=== PATIENT | female | born 1975 | race Hispanic/Latino ===

== ENCOUNTER 2017-05-19 15:33 | Emergency (ER) | payer OTHER, SELFPAY ==
[2017-05-19 16:08] LABS: Bilirubin Small (Negative); Blood, Urine Trace (Negative); Glucose, Urine (Dipstick) Negative (Negative); Ketone, Urine Negative (Negative); Nitrite Negative (Negative); Protein, Urine (Dipstick) Trace mg/dL (Neg-Trace); Urobilinogen 0.2 mg/dL (0.2-1.0)
[2017-05-19 16:15] LABS: Bacteria/HPF 2+ HPF (None Seen); RBC/HPF 0-3 HPF (0-3)
[2017-05-19 16:16] LABS: Hyaline Casts/LPF NONE SEEN LPF (0-3 Hyaline)
== END 2017-05-19 18:00 | disposition home or self-care (01) ==
LOC: ERS 15:33
DX: N30.91 Cystitis, unspecified with hematuria (principal)
CPT/HCPCS: 81003; 81015; 81025; 99284

== ENCOUNTER 2018-09-28 23:46 | Observation (INO) | payer MEDICAID, SELFPAY ==
[2018-09-29 00:16] LABS: Bilirubin Negative (Negative); Blood, Urine Negative (Negative); Clarity CLEAR (Clear); Glucose, Urine (Dipstick) Negative (Negative); Leukocyte Negative (Negative); Nitrite Negative (Negative); Protein, Urine (Dipstick) Negative (Neg-Trace); Specific Gravity, Urine 1.014 (1.002-1.036)
[2018-09-29 00:17] LABS: #Basophils 0.1 thou/uL (0.0-0.2); #Eosinphils 0.1 thou/uL (0.0-0.7); #Lymphocytes 3.7 thou/uL (1.20-3.40); #Monocytes 0.9 thou/uL (0.11-0.59); #Neutrophils 5.1 thou/uL (1.40-6.50); %Basophils 1.2 % (0.0-1.0); %Eosinophils 1.4 % (0.0-10.0); %Lymphocytes 36.8 % (21.0-51.0); %Monocytes 9.1 % (0.0-10.0); %Neutrophils 51.6 % (42.0-75.0); Hemoglobin 14.4 g/dL (12.0-16.0); Mean Corpuscular HGB CONC 33.9 g/dL (32.0-36.0); Mean Corpuscular Hemoglobin 30.4 pg (27.0-31.0); Mean Corpuscular Volume 89.6 fL (78.0-98.0); Mean Platelet Volume 7.4 fL (7.4-10.4); Platelet Count 298 thou/uL (130-400); RBC Distribution Width 11.9 % (11.5-14.5); Red Blood Cell (RBC) Count 4.73 mill/uL (4.20-5.40); White Blood Cell (WBC) Count 9.9 thou/uL (4.8-10.8)
[2018-09-29 00:23] LABS: BHCG - Serum Negative (NEGATIVE); Pregs Control Background? CLEAR/WHITE (CLR/WHITE); Pregs Control Bar Appear? YES (CONTROL BAR)
[2018-09-29 00:38] LABS: ALT (SGPT) 41 U/L (8-55); AST (SGOT) 26 U/L (5-34); Albumin 4.2 g/dL (3.5-5.0); Alkaline Phosphatase 104 U/L (40-150); Anion Gap 10 mmol/L (10-20); BUN (Urea Nitrogen) 12 mg/dL (7.0-18.7); Bilirubin, Total 0.6 mg/dL (0.2-1.2); Calc. Creatinine Clearance 0 mL/min (70-130); Calcium 9.4 mg/dL (7.8-10.44); Carbon Dioxide 27 mmol/L (22-29); Chloride 105 mmol/L (98-107); Estimated GFR-MDRD 88; Globulin 3.3 g/dL (2.4-3.5); Glucose 152 mg/dL (70-105); Lipase 41 U/L (8-78); Potassium 3.7 mmol/L (3.5-5.1); Protein, Total 7.5 g/dL (6.0-8.3); Sodium 138 mmol/L (136-145)
[2018-09-29] MEDS ORDERED: Morphine 4 MG/ML VIAL ONE ×2 (02:37→03:44)
[2018-09-29] MEDS ORDERED: Piperacillin/Tazobactam 3.375 GM VIAL ONE ×2 (03:44→10:17)
[2018-09-29] MEDS ORDERED: Ondansetron ODT 4 MG TAB SL PRN (06:15)
[2018-09-29] MEDS ORDERED: Ondansetron PF 4 MG/2 ML Vial IVP PRN ×2 (06:15→10:39)
[2018-09-29] MEDS ORDERED: Morphine 4 MG/ML VIAL SLOW IVP PRN (06:17)
--- NOTE | 2018-09-29 07:48 | CT ---
PRELIMINARY REPORT/[facility]/EMERGENCY AFTER HOURS PROCEDURE: EXAM: CT Abdomen and Pelvis With Contrast EXAM DATE/TIME: 09/29/2018 12:36 AM CLINICAL HISTORY: 43 years old, female; Pain; Abdominal pain; Periumbilical; Patient HX: 43f presents for the evaluatio n of abdominal pain. Patient reports diffuse abdominal pain x 1 week and reports it is worsening. Pat ient reports ruq pain, periumbilical pain that radiates to her flank tonight. Denies fever and chills . Denies nausea and vomiting. Denies dysuria. Denies hematuria TECHNIQUE: Imaging protocol: Axial computed tomography images of the abdomen and pelvis with intravenous contras t. Coronal reformatted images were created and reviewed. COMPARISON: No relevant prior studies available. FINDINGS: Lower thorax: No consolidations in the lung bases. ABDOMEN: Liver: No liver masses. Gallbladder and bile ducts: Cholelithiasis. Enhancing gallbladder mucosa. No ductal dilation. Pancreas: No pancreatic mass or ductal dilation. Spleen: No splenic masses. Adrenals: No adrenal nodules. Kidneys and ureters: Symmetric perfusion of the kidneys. No enhancing mass or hydronephrosis. Stomach and bowel: No evidence of obstruction or bowel wall thickening. Scattered colonic diverticula . Appendix: The appendix is not visualized, however there are no inflammatory changes in the right lowe r quadrant to suspect appendicitis. PELVIS: Bladder: Normal bladder. Reproductive: Unremarkable as visualized. ABDOMEN and PELVIS: Intraperitoneal space: No free fluid or free air. Bones/joints: No acute fracture. No dislocation. Soft tissues: Mild fat stranding and punctate foci of air in the right buttock consistent with inject ion site. Vasculature: Normal vasculature. Lymph nodes: No lymphadenopathy. IMPRESSION: Cholelithiasis and enhancing gallbladder wall. Findings could represent early cholecystitis. Thank you for allowing us to participate in the care of your patient. Dictated and Authenticated by: Rosibel Riggs MD 09/29/2018 2:01 AM Central Time ([place] & [place]) FINAL REPORT ABDOMEN CT WITH CONTRAST PELVIC CT WITH CONTRAST: Date: 09/29/18 COMPARISON: 01/14/16. HISTORY: Right upper quadrant pain. Periumbilical pain, radiating to the flank. Abdominal pain x1 week. FINDINGS: This report is in agreement with the preliminary report by Frankie. There is CT evidence of cholelithias is with gallbladder wall enhancement and a small amount of pericholecystic fluid. Correlate clinicall y for acute cholecystitis. Heterogeneous appearance of the uterus may represent changes secondary to uterine leiomyoma. Better i nterrogation with pelvic ultrasound would be beneficial. IMPRESSION: 1. Early cholecystitis. 2. Heterogeneous attenuation of the uterus likely due to uterine leiomyoma. Better interrogation wit h pelvic ultrasound is recommended. CODE T. POS: [facility]
--- NOTE | 2018-09-29 07:51 | ULT ---
PRELIMINARY REPORT/[facility]/EMERGENCY AFTER HOURS PROCEDURE: EXAM: US Abdomen Limited, Right Upper Quadrant EXAM DATE/TIME: 09/29/2018 2:35 AM CLINICAL HISTORY: 43 years old, female; Pain and signs and symptoms; Nausea and vomiting; Abdominal pain; Localized; Ri ght upper quadrant (ruq) TECHNIQUE: Imaging protocol: Real-time ultrasound of the abdomen with image documentation. Examination was focus ed on the right upper quadrant. COMPARISON: CT Abdomen Pelvis W Con 09/29/2018 12:36 AM FINDINGS: Liver: Increased echogenicity of the liver suggestive of fatty infiltration. The length of the liver is 16.7 cm. Gallbladder: Multiple gallstones. The gallbladder wall is thickened up to 0.68 cm. The sonographic Mu rphy's sign was positive. Common bile duct: No intrahepatic nor extrahepatic biliary dilation. The common bile duct measures 0. 4 cm. Pancreas: The visualized portions of the pancreas are normal. Right kidney: Normal appearance of the right kidney with normal cortical echogenicity and without hyd ronephrosis or mass. The right kidney measures 9.8 x 3.8 x 4 cm. IMPRESSION: Cholelithiasis with sonographic findings of acute cholecystitis. Thank you for allowing us to participate in the care of your patient. Dictated and Authenticated by: Rosibel Riggs MD 09/29/2018 3:16 AM Central Time ([place] & [place]) FINAL REPORT GALLBLADDER ULTRASOUND: Date: 09/29/18 HISTORY: Right upper quadrant pain. COMPARISON: None. TECHNIQUE: Utilizing multihertz transducer, sonographic imaging of the right upper quadrant is performed in the longitudinal and transverse plane. FINDINGS: This report is in agreement with the preliminary report by Frankie. Increased echogenicity of the liver likely due to hepatic steatosis. Sonographic evidence of cholelithiasis with gallbladder wall thickening. Barrel Rifler Broach does report a po sitive Rogers's sign. IMPRESSION: Cholelithiasis with sonographic findings for acute cholecystitis. POS: [facility]
--- NOTE | 2018-09-29 07:52 | RAD ---
FChest AP view INDICATION: Preoperative evaluation with abdominal pain COMPARISON: None FINDINGS: The lungs are clear. The heart size is normal. No pleural effusion or pneumothorax is evide nt. No acute osseous abnormality is noted. IMPRESSION: No acute cardiopulmonary abnormality.
[2018-09-29] MEDS ORDERED: Fentanyl 100 MCG/2 ML VIAL ONE ×2 (08:54→11:11)
[2018-09-29] MEDS ORDERED: Bupivacaine/Epinephrine 0.25% 30 ML VIAL ONE (09:20)
[2018-09-29] MEDS ORDERED: Midazolam HCl 2 mg/2 ml Vial ONE (09:27)
[2018-09-29] MEDS ORDERED: Scopolamine 1.5 mg/72 hour Patch ONE (09:27)
[2018-09-29] MEDS: Piperacillin/Tazobactam 3.375 GM in Sodium Chloride 0.9% 100 ML IVPB SCH ×2 (10:10→14:54)
[2018-09-29] MEDS: Sodium Chloride 0.9% 1,000 ML IV SCH ×4 (10:10→23:05)
[2018-09-29] MEDS ORDERED: Promethazine HCl 25 MG/ML VIAL IM PRN ×2 (10:39→10:44)
[2018-09-29] MEDS ORDERED: Calcium Carbonate 500 MG ChewTAB PO PRN (10:39)
[2018-09-29] MEDS ORDERED: Dextrose 50% Abboject 50 ML SYRINGE SLOW IVP PRN (10:39)
[2018-09-29] MEDS ORDERED: Mag-Al 1200 mg/1200 mg/30 ML UDCUP PO PRN (10:39)
[2018-09-29] MEDS ORDERED: HYDROcodone/Acetaminophen 10/325 mg Tablet PO PRN ×2 (10:39)
[2018-09-29] MEDS ORDERED: Dextrose 5% in Water 1,000 ML IV PRN (10:39)
[2018-09-29] MEDS ORDERED: hydrALAZINE 20 MG/ML VIAL SLOW IVP PRN (10:39)
[2018-09-29] MEDS ORDERED: Promethazine HCl 25 MG/ML VIAL SLOW IVP PRN (10:44)
[2018-09-29] MEDS ORDERED: Ondansetron HCl/PF 4 MG/2 ML Vial IVP PRN (10:44)
[2018-09-29] MEDS ORDERED: Meperidine HCl/PF 25 MG/ML VIAL SLOW IVP PRN (10:44)
[2018-09-29] MEDS: Enoxaparin Sodium 40 MG/0.4 ML SYRINGE SC SCH (12:30)
[2018-09-29] MEDS: Famotidine 20 MG TAB PO SCH ×2 (12:42→20:02)
[2018-09-29] MEDS: Famotidine/PF 20 mg/2ml Vial SLOW IVP SCH ×2 (12:42→20:04)
[2018-09-29] MEDS: Ketorolac Tromethamine 30 MG/ML VIAL IVP SCH ×4 (12:53→23:04)
[2018-09-29] MEDS ORDERED: Ondansetron PF 4 MG/2 ML Vial ONE (14:01)
[2018-09-29] MEDS ORDERED: Lidocaine 1% PF 5 ML VIAL ONE (14:01)
[2018-09-29] MEDS ORDERED: Metoclopramide HCl 10 MG/2 ML VIAL ONE (14:01)
[2018-09-29] MEDS ORDERED: Rocuronium Bromide 10 MG/ML (10ML VIAL) ONE (14:01)
[2018-09-29] MEDS ORDERED: PROPOFOL 200 MG/20 ML VIAL ONE (14:01)
[2018-09-29] MEDS ORDERED: Dexamethasone 20 MG/5 ML VIAL ONE (14:01)
--- NOTE | 2018-09-29 14:19 | HP ---
CHIEF COMPLAINT: Epigastric abdominal pain. HISTORY OF PRESENT ILLNESS: The patient is a 43-year-old female with a 2-week history of right upper quadrant epigastric pain radiating to back. No fever or chills. PAST MEDICAL HISTORY: Otherwise, unremarkable. PAST SURGICAL HISTORY: She had a skin lesion removed. She also had an appendectomy. MEDICATIONS: No medications. ALLERGIES: NO KNOWN DRUG ALLERGIES. SOCIAL HISTORY: She is . No tobacco. No alcohol. She speaks [place]. She is a homemaker. FAMILY HISTORY: Noncontributory. PHYSICAL EXAMINATION: VITAL SIGNS: Pulse 76, blood pressure 127/79, temperature 98.6. GENERAL: Well-developed, well-nourished female, in no apparent distress. HEENT: No jaundice. LUNGS: Clear. HEART: Regular rate and rhythm. ABDOMEN: Soft. Very tender in the right upper quadrant and periumbilical area. She has positive Rogers sign. EXTREMITIES: Unremarkable. LABORATORY DATA: White count 9.9, H and H of 14 and 42, platelet count 298. Electrolytes are fine. Elevated glucose at 152. Urinalysis, clear. Ultrasound shows thickened gallbladder wall with gallstones. CT also confirmed that. ASSESSMENT: Acute cholecystitis. PLAN: Laparoscopic cholecystectomy. CONSENT: I have discussed planned procedure as well as risk of bleeding, infection, injury to bile duct and bowel, need to open. She understands and gives informed consent. Job ID: [id number]
[2018-09-29] MEDS ORDERED: ISOVUE-370 76%-LOCM 1 ML ONE (14:50)
[2018-09-29] MEDS: Morphine 4 MG/ML VIAL SLOW IVP PRN (14:52)
[2018-09-29] MEDS ORDERED: cefOXitin 2 GM in Sodium Chloride 0.9% 100 ML IVPB SCH (15:30)
--- NOTE | 2018-09-29 17:04 | OP ---
DATE OF PROCEDURE: 09/29/2018 PREOPERATIVE DIAGNOSIS: Acute cholecystitis. PROCEDURE PERFORMED: Laparoscopic cholecystectomy. INDICATIONS: This is a 43-year-old female, who has been having episodic right upper quadrant pain, radiating to back, associated with nausea. Ultrasound showed cholelithiasis. FINDINGS: A thickened gallbladder wall, large stone, small duct. DESCRIPTION OF PROCEDURE: After informed consent was obtained, the patient was taken to the operating room and given general endotracheal anesthesia, placed in supine position. Abdomen was prepped and draped in usual fashion. Local anesthesia infiltrated subcutaneously and deep. A subumbilical incision was performed. Subcu divided sharply. The fascia grasped and 2 stay sutures of 0 Vicryl placed in each side of midline. Midline incised. Digital palpation revealed no local adhesions. A blunt 12-mm trocar inserted. Pneumoperitoneum was created to a pressure of 15 mmHg. A 0-degree laparoscope was inserted under direct vision. Three 5-mm ports were placed subcostally. The gallbladder was grasped and advanced superiorly. Peritoneum lysed distally to reveal the cystic duct artery in critical view. These structures were triply ligated with hemoclips and divided. The gallbladder removed from its fossa utilizing electrocautery, removed from the abdomen through the umbilical port. Hemostasis assured. Now, the gallbladder had very large stones and so I had opened the fascia further as well as the skin to get it out. The abdomen was re-insufflated. Liver bed was cauterized to control any bleeding. The abdomen was irrigated. Irrigation fluid removed. The trocars and retractors were removed. The fascia was closed with interrupted 2-0 Vicryl suture. The skin was closed with interrupted 4-0 Rapide. Dermabond applied. The patient tolerated the procedure well, transferred to Recovery in good condition. Sponge and needle count verified correct x2. Job ID: [id number]
[2018-09-29 17:09] VITALS: BMI 23.8
[2018-09-29] MEDS: cefOXitin Sodium/Dextrose,Iso 2 GM in Premix Bag 1 BAG IVPB SCH ×2 (18:06→23:05)
[2018-09-29] MEDS: cefOXitin 2 GM in Premix Bag 1 BAG IVPB SCH ×2 (18:11→23:08)
[2018-09-30] MEDS: Morphine 4 MG/ML VIAL SLOW IVP PRN (01:15)
[2018-09-30 05:08] LABS: #Lymphocytes 2.2 thou/uL (1.20-3.40); %Basophils 0.1 % (0.0-1.0); %Eosinophils 0.1 % (0.0-10.0); %Lymphocytes 13.3 % (21.0-51.0); %Monocytes 6.4 % (0.0-10.0); Hemoglobin 12.8 g/dL (12.0-16.0); Mean Corpuscular HGB CONC 33.3 g/dL (32.0-36.0); Mean Corpuscular Hemoglobin 30.8 pg (27.0-31.0); Mean Corpuscular Volume 92.3 fL (78.0-98.0); Mean Platelet Volume 7.5 fL (7.4-10.4); Platelet Count 282 thou/uL (130-400); RBC Distribution Width 12.1 % (11.5-14.5); Red Blood Cell (RBC) Count 4.16 mill/uL (4.20-5.40); White Blood Cell (WBC) Count 16.2 thou/uL (4.8-10.8)
[2018-09-30 05:28] LABS: ALT (SGPT) 427 U/L (8-55); AST (SGOT) 243 U/L (5-34); Albumin 3.5 g/dL (3.5-5.0); Alkaline Phosphatase 108 U/L (40-150); Anion Gap 8 mmol/L (10-20); BUN (Urea Nitrogen) 8 mg/dL (7.0-18.7); Bilirubin, Total 0.8 mg/dL (0.2-1.2); Calc. Creatinine Clearance 115 mL/min (70-130); Calcium 8.6 mg/dL (7.8-10.44); Carbon Dioxide 22 mmol/L (22-29); Chloride 112 mmol/L (98-107); Estimated GFR-MDRD Greater than 90; Globulin 2.8 g/dL (2.4-3.5); Glucose 133 mg/dL (70-105); Lipase 23 U/L (8-78); Potassium 4.1 mmol/L (3.5-5.1); Protein, Total 6.3 g/dL (6.0-8.3); Sodium 138 mmol/L (136-145)
[2018-09-30] MEDS: Ketorolac Tromethamine 30 MG/ML VIAL IVP SCH ×2 (06:15→11:55)
[2018-09-30] MEDS ORDERED: cefOXitin Sodium/Dextrose,Iso 2 GM in Premix Bag 1 BAG IVPB SCH (08:00)
[2018-09-30] MEDS: Sodium Chloride 0.9% 1,000 ML IV SCH (08:06)
[2018-09-30] MEDS ORDERED: traMADol HCl 50 MG TAB PO PRN (09:01)
[2018-09-30] MEDS ORDERED: Enoxaparin Sodium 40 MG/0.4 ML SYRINGE SC SCH (09:30)
[2018-09-30] MEDS: Famotidine/PF 20 mg/2ml Vial SLOW IVP SCH (09:34)
[2018-09-30] MEDS: Famotidine 20 MG TAB PO SCH (09:34)
[2018-09-30] MEDS: Enoxaparin Sodium 40 MG/0.4 ML SYRINGE SC SCH (09:36)
--- NOTE | 2018-09-30 09:56 | PRG ---
DATE OF SERVICE: 09/30/2018 SUBJECTIVE: The patient reports that she does not feel very well this morning. She says she is having lower abdominal pain. No nausea. No vomiting. She is eating well. OBJECTIVE: VITAL SIGNS: Her temperature is 98, pulse 69, and blood pressure 94/58. GENERAL: She looks okay. She is awake and alert. ABDOMEN: Soft and nondistended. Very minimal erythema around her umbilicus. The other incisions look good. LABORATORY DATA: Her white count is elevated at 16.2, hemoglobin and hematocrit of 12 and 38, platelet count 282. Her AST is 243, ALT of 427, T bilirubin of 0.8, and glucose is 133. ASSESSMENT: Postoperative pain. PLAN: We will get her ambulated, try and get her pain under control. May be discharged later. Job ID: [id number]
[2018-09-30 16:15] VITALS: BP 115/72; TEMP 98.1
--- NOTE | 2018-10-01 02:31 | DIS ---
DATE OF ADMISSION: 09/29/2018 DATE OF DISCHARGE: 09/30/2018 DISCHARGE DIAGNOSIS: Acute cholecystitis. PROCEDURE DURING ADMISSION: Laparoscopic cholecystectomy. HOSPITAL COURSE: The patient was admitted, given IV antibiotics, taken to the operating room where she underwent a laparoscopic cholecystectomy. She was found to have an inflamed gallbladder. Postoperatively, she did well, moderate pain. She is tolerating a regular diet. She is afebrile. She is discharged home on hydrocodone, Zofran, and doxycycline. She will follow up with me in 2 weeks. Job ID: [id number]
== END 2018-09-30 16:20 | disposition home or self-care (01) ==
LOC: ERS 23:46 → SJJU 09-29 06:16
PROVIDERS: ADMIT Surgery; ATTEND Surgery
PROC: 0FT44ZZ Resection of Gallbladder, Percutaneous Endoscopic Approach (ICD-10-PCS; principal; 2018-09-29)
DX: K80.12 Calculus of gallbladder with acute and chronic cholecystitis without obstruction (principal); G89.18 Other acute postprocedural pain
CPT/HCPCS: 36415; 71045; 74177; 76705; 80053; 81003; 83690; 84703; 85025; 86850; 86900; 86901; 87086; 88304; 93005; 96361; 96365; 96367; 96372; 96375; 96376; G0378; J0500; J0694; J1100; J1650; J1885; J2001; J2250; J2270; J2405; J2543; J2704; J2765; J3010; J7050; Q9966

== ENCOUNTER 2018-10-10 07:56 | Emergency (ER) | payer MEDICAID, SELFPAY ==
[2018-10-10] MEDS ORDERED: Morphine 4 MG/ML VIAL ONE (09:03)
[2018-10-10 09:08] LABS: #Basophils 0.1 thou/uL (0.0-0.2); #Eosinphils 0.2 thou/uL (0.0-0.7); #Lymphocytes 3.2 thou/uL (1.20-3.40); #Monocytes 0.8 thou/uL (0.11-0.59); %Eosinophils 2.2 % (0.0-10.0); %Lymphocytes 34.6 % (21.0-51.0); %Monocytes 8.5 % (0.0-10.0); %Neutrophils 53.7 % (42.0-75.0); Hemoglobin 13.6 g/dL (12.0-16.0); Mean Corpuscular HGB CONC 31.9 g/dL (32.0-36.0); Mean Corpuscular Volume 90.7 fL (78.0-98.0); Mean Platelet Volume 7.3 fL (7.4-10.4); Platelet Count 313 thou/uL (130-400); RBC Distribution Width 11.8 % (11.5-14.5); Red Blood Cell (RBC) Count 4.69 mill/uL (4.20-5.40); White Blood Cell (WBC) Count 9.2 thou/uL (4.8-10.8)
[2018-10-10 09:39] LABS: ALT (SGPT) 42 U/L (8-55); AST (SGOT) 22 U/L (5-34); Albumin 3.8 g/dL (3.5-5.0); Alkaline Phosphatase 118 U/L (40-150); Anion Gap 11 mmol/L (10-20); BUN (Urea Nitrogen) 14 mg/dL (7.0-18.7); Bilirubin, Total 0.3 mg/dL (0.2-1.2); Calc. Creatinine Clearance 0 mL/min (70-130); Calcium 9.2 mg/dL (7.8-10.44); Carbon Dioxide 26 mmol/L (22-29); Chloride 107 mmol/L (98-107); Estimated GFR-MDRD 89; Globulin 3.2 g/dL (2.4-3.5); Glucose 113 mg/dL (70-105); Lipase 30 U/L (8-78); Potassium 4.3 mmol/L (3.5-5.1); Sodium 140 mmol/L (136-145)
--- NOTE | 2018-10-10 10:03 | ULT ---
RIGHT UPPER QUADRANT ULTRASOUND: HISTORY: Eleven days post cholecystectomy with right upper quadrant pain. FINDINGS: 09/29/2018 FINDINGS: The liver demonstrates increased echogenicity, consistent with fatty infiltration. No focal mass or intrahepatic ductal dilatation is seen. The patient is post cholecystectomy. The common duct measur es 5 mm in diameter. The pancreas is not well visualized due to overlying bowel gas. The right kidn ey is normal. There is fluid in the gallbladder fossa. IMPRESSION: Status post cholecystectomy with fluid in the gallbladder fossa, which may either be due to postopera tive fluid or bile leak. Infection cannot be excluded. Further evaluation with HIDA scan would be h elpful to look for bile leak. POS: [facility]
[2018-10-10] MEDS ORDERED: Acetaminophen 325 MG TAB ONE (10:54)
== END 2018-10-10 12:08 | disposition home or self-care (01) ==
LOC: ERS 07:56
DX: R10.11 Right upper quadrant pain (principal)
CPT/HCPCS: 36415; 76705; 80053; 83690; 85025; 96374; J2270

== ENCOUNTER 2019-02-25 19:14 | Emergency (ER) | payer OTHER, SELFPAY ==
[~2019-02-25 19:14] MED LIST: ISOVUE-370 76%-LOCM 1 ML ONE
[2019-02-25 20:13] LABS: #Basophils 0.1 thou/uL (0.0-0.2); #Eosinphils 0.1 thou/uL (0.0-0.7); #Lymphocytes 3.1 thou/uL (1.20-3.40); #Monocytes 0.8 thou/uL (0.11-0.59); #Neutrophils 4.8 thou/uL (1.40-6.50); %Basophils 0.7 % (0.0-1.0); %Eosinophils 1.3 % (0.0-10.0); %Lymphocytes 34.6 % (21.0-51.0); %Monocytes 9.2 % (0.0-10.0); %Neutrophils 54.2 % (42.0-75.0); Hemoglobin 14.5 g/dL (12.0-16.0); Mean Corpuscular HGB CONC 34.5 g/dL (32.0-36.0); Mean Corpuscular Hemoglobin 31.7 pg (27.0-31.0); Mean Corpuscular Volume 91.8 fL (78.0-98.0); Mean Platelet Volume 7.6 fL (7.4-10.4); Platelet Count 281 thou/uL (130-400); RBC Distribution Width 11.7 % (11.5-14.5); Red Blood Cell (RBC) Count 4.57 mill/uL (4.20-5.40); White Blood Cell (WBC) Count 8.9 thou/uL (4.8-10.8)
[2019-02-25 20:17] LABS: BHCG - Serum Negative (NEGATIVE); Pregs Control Background? CLEAR/WHITE (CLR/WHITE); Pregs Control Bar Appear? YES (CONTROL BAR)
[2019-02-25 20:33] LABS: ALT (SGPT) 145 U/L (8-55); AST (SGOT) 80 U/L (5-34); Albumin 4.3 g/dL (3.5-5.0); Alkaline Phosphatase 139 U/L (40-150); Anion Gap 12 mmol/L (10-20); BUN (Urea Nitrogen) 10 mg/dL (7.0-18.7); Bilirubin, Total 0.4 mg/dL (0.2-1.2); Calc. Creatinine Clearance 0 mL/min (70-130); Carbon Dioxide 20 mmol/L (22-29); Chloride 107 mmol/L (98-107); Estimated GFR-MDRD Greater than 90; Globulin 3.3 g/dL (2.4-3.5); Glucose 105 mg/dL (70-105); Lipase 39 U/L (8-78); Potassium 3.7 mmol/L (3.5-5.1); Protein, Total 7.6 g/dL (6.0-8.3); Sodium 135 mmol/L (136-145)
[2019-02-25 21:04] LABS: Bilirubin Negative (Negative); Blood, Urine Negative (Negative); Clarity Clear (Clear); Glucose, Urine (Dipstick) Normal (Negative); Leukocyte Negative Leu/uL (Negative); Nitrite Negative (Negative); Protein, Urine (Dipstick) Negative (Neg-Trace); Urobilinogen Normal mg/dL (Less than 2)
[2019-02-25] MEDS ORDERED: Ondansetron ODT 4 MG TAB ONE (21:25)
[2019-02-25] MEDS ORDERED: Ketorolac Tromethamine 60 MG/2 ML VIAL ONE (21:25)
--- NOTE | 2019-02-25 22:22 | CT ---
CT ABDOMEN AND PELVIS WITH IV CONTRAST: 02/25/19 HISTORY: Abdominal pain. COMPARISON: 09/29/18. FINDINGS: The lung bases are clear. Interval changes of cholecystectomy have occurred since the last study. Roxie nges of fatty infiltration of the liver are again seen. The spleen, pancreas, adrenal glands and kidn eys are normal. No free air, free fluid, or lymphadenopathy seen in the abdomen or pelvis. There is colonic diverticulosis without diverticulitis. There is abnormal dilatation of the terminal ileum which is fluid filled. A fibroid uterus is present. The aortic caliber is normal. No acute osseous abnormalities are seen. IMPRESSION: 1. Dilated fluid filled terminal ileum. Further evaluation with colonoscopy and small bowel seri es are recommended. 2. Colonic diverticulosis. 3. Fatty liver. 4. Fibroid uterus. POS: [facility]
[2019-02-25] MEDS ORDERED: Morphine 4 MG/ML VIAL ONE (22:42)
[2019-02-25] MEDS ORDERED: Ondansetron PF 4 MG/2 ML Vial ONE (22:42)
== END 2019-02-26 00:35 | disposition home or self-care (01) ==
LOC: ERS 19:14
DX: R10.30 Lower abdominal pain, unspecified (principal); R11.2 Nausea with vomiting, unspecified; R94.5 Abnormal results of liver function studies
CPT/HCPCS: 36415; 74177; 80053; 81003; 83690; 84703; 85025; 96372; 96374; 96375; J0500; J1885; J2270; J2405; Q0162; Q9966

== ENCOUNTER 2019-03-03 19:32 | Inpatient (IN) | payer SELFPAY ==
[2019-03-03] MEDS ORDERED: Ondansetron PF 4 MG/2 ML Vial ONE ×2 (20:03→20:34)
[2019-03-03] MEDS ORDERED: Morphine 4 MG/ML VIAL ONE (20:03)
[2019-03-03] MEDS ORDERED: Ketorolac Tromethamine 30 MG/ML VIAL ONE (20:03)
--- NOTE | 2019-03-03 20:25 | RAD ---
EXAM: Single view of the chest HISTORY: Flulike symptoms and cough COMPARISON: 09/29/2018 FINDINGS: Single view of the chest shows a normal sized cardiomediastinal silhouette. There is no jocelyn dence of consolidation, mass, or pleural effusion. The bones are unremarkable. IMPRESSION: No evidence of acute cardiopulmonary disease
[2019-03-03 20:32] LABS: Mean Corpuscular Volume 90.9 fL (78.0-98.0)
[2019-03-03 20:34] LABS: ALT (SGPT) 170 U/L (8-55); AST (SGOT) 106 U/L (5-34); Albumin 4.7 g/dL (3.5-5.0); Alkaline Phosphatase 172 U/L (40-150); Anion Gap 15 mmol/L (10-20); BUN (Urea Nitrogen) 8 mg/dL (7.0-18.7); Bilirubin, Total 0.7 mg/dL (0.2-1.2); Calc. Creatinine Clearance 0 mL/min (70-130); Calcium 9.6 mg/dL (7.8-10.44); Carbon Dioxide 20 mmol/L (22-29); Chloride 103 mmol/L (98-107); Estimated GFR-MDRD 79; Globulin 3.6 g/dL (2.4-3.5); Glucose 179 mg/dL (70-105); Potassium 3.8 mmol/L (3.5-5.1); Protein, Total 8.3 g/dL (6.0-8.3); Sodium 134 mmol/L (136-145)
[2019-03-03 20:42] LABS: Band 14 % (5-11); Hemoglobin 15.4 g/dL (12.0-16.0); Lymphocytes 7 % (21-51); MDiff Complete? YES; Mean Corpuscular Hemoglobin 31.8 pg (27.0-31.0); Mean Platelet Volume 7.6 fL (7.4-10.4); Monocytes 2 % (0-10); Neutrophil 77 % (42-75); Platelet Count 290 thou/uL (130-400); Platelet Morphology Comment Appears Adequate; RBC Distribution Width 11.8 % (11.5-14.5); Red Blood Cell (RBC) Count 4.85 mill/uL (4.20-5.40); White Blood Cell (WBC) Count 20.6 thou/uL (4.8-10.8)
[2019-03-03 20:51] LABS: Bilirubin Negative (Negative); Blood, Urine 2+ (Negative); Clarity Clear (Clear); Glucose, Urine (Dipstick) 200 mg/dL (Negative); Leukocyte Negative Leu/uL (Negative); Mucous/LPF Rare LPF (<2+); Nitrite Negative (Negative); Protein, Urine (Dipstick) 30 mg/dL (Neg-Trace); Urobilinogen 3 mg/dL (Less than 2)
[2019-03-03 20:52] LABS: Pregnancy Test - Urine (BHCG) Negative (Negative); Pregu Control Background? CLEAR/WHITE (CLR/WHITE); Pregu Control Bar Appear? YES (CONTROL BAR); Specific Gravity 1.019 (1.002-1.036)
[2019-03-03 20:57] LABS: Bacteria/HPF 1+ HPF (None Seen)
[2019-03-03] MEDS ORDERED: Piperacillin/Tazobactam 4.5 GM VIAL ONE (21:18)
--- NOTE | 2019-03-03 21:23 | CT ---
CT Abdomen Pelvis W Con: 03/03/2019 12:00 AM CLINICAL INFORMATION: Body aches and diffuse abdominal pain with fever COMPARISON: 02/25/2019 TECHNIQUE: Multiple contiguous axial images were obtained and a CT of the abdomen and pelvis with IV contrast. C oronal reformats were performed. FINDINGS: Lower Chest: within normal limits. Abdomen: Liver: Diffuse fatty infiltration Bile Ducts: Normal caliber. Gallbladder: Surgically absent Pancreas: within normal limits. Spleen: within normal limits. Adrenals: within normal limits. Kidneys: within normal limits. Pelvis: Reproductive Organs: No pelvic masses. Ureters: within normal limits. Bladder: within normal limits. Peritoneum: No ascites or free air, no fluid collection. Bowel: Normal caliber. Scattered diverticula in the colon. Mesentery and Retroperitoneum: No enlarged mesenteric or retroperitoneal lymph nodes. Vessels: Normal. Abdominal Wall: within normal limits. Bones: Within normal limits IMPRESSION: 1. No evidence of acute intraabdominal or pelvic abnormality. 2. Diverticulosis 3. Fatty liver
--- NOTE | 2019-03-03 22:30 | ULT ---
US Gallbladder RUQ: 03/03/2019 9:21 PM CLINICAL HISTORY: Retained stone status post cholecystectomy. Abdominal pain and fever. Elevated LFTs . STUDY: Limited right upper quadrant ultrasound of abdomen. COMPARISON: 10/10/2018; CT abdomen/pelvis 03/03/2019 FINDINGS: Liver: Size: Normal. Echogenicity: Hyperechoic consistent with hepatic steatosis. Contour: Smooth. Mass: None. Bile ducts: No intrahepatic or extrahepatic biliary dilatation. Common bile duct measures 5 mm. Gallbladder: Absent Pancreas: Not visualized Right kidney: No pelvicalyceal dilatation. Right kidney measuring 10.7 cm in length. IMPRESSION: Fatty liver
[2019-03-04 00:28] LABS: Lactic Acid 2.8 mmol/L (0.5-2.2)
[2019-03-04] MEDS ORDERED: Morphine 2 MG/ML SYRINGE SLOW IVP PRN (01:06)
[2019-03-04] MEDS ORDERED: Ondansetron PF 4 MG/2 ML Vial IVP PRN (01:07)
[2019-03-04] MEDS ORDERED: Ondansetron ODT 4 MG TAB SL PRN (01:07)
[2019-03-04 01:13] LABS: HBCM Index 0.07 S/CO (0-0.79); HBSAg Index 0.26 S/CO (0-0.99); Hep A IgM AB Non-Reactive (NonReactive); Hep A IgM S/CO 0.22 S/CO (0-0.79); Hep B Surf Ag Non-Reactive S/CO (NonReactive); Hep C IgG Ab Non-Reactive (NonReactive); Hep C Index 0.13 S/CO (0-0.79); Hepatitis B Core IgM Abs Non-Reactive (NonReactive)
[2019-03-04 01:56] VITALS: BMI 32.7
[2019-03-04] MEDS: Acetaminophen 325 MG TAB PO PRN ×2 (02:32→15:50)
[2019-03-04] MEDS: Sodium Chloride 0.9% 1,000 ML IV SCH ×4 (02:42→21:07)
[2019-03-04] MEDS ORDERED: Piperacillin/Tazobactam 4.5 GM in Sodium Chloride 0.9% 100 ML IVPB SCH ×2 (03:00→06:00)
[2019-03-04] MEDS: Piperacillin/Tazobactam 4.5 GM in Sodium Chloride 0.9% 100 ML IVPB SCH ×2 (09:22→16:39)
[2019-03-04] MEDS: Enoxaparin Sodium 40 MG/0.4 ML SYRINGE SC SCH (09:23)
[2019-03-04] MEDS ORDERED: Ondansetron PF 4 MG/2 ML Vial ONE (10:27)
[2019-03-04] MEDS ORDERED: Lidocaine 1% PF 5 ML VIAL ONE (10:27)
[2019-03-04] MEDS ORDERED: Dexamethasone 20 MG/5 ML VIAL ONE (10:27)
[2019-03-04] MEDS ORDERED: PROPOFOL 200 MG/20 ML VIAL ONE (10:27)
[2019-03-04] MEDS ORDERED: Rocuronium Bromide 10 MG/ML (10ML VIAL) ONE (10:27)
[2019-03-04] MEDS ORDERED: Glycopyrrolate 0.2 MG/ML 5 ML SYRINGE ONE (10:27)
[2019-03-04] MEDS ORDERED: ISOVUE-370 76%-LOCM 1 ML ONE (10:37)
--- NOTE | 2019-03-04 12:23 | CON ---
DATE OF CONSULTATION: 03/04/2019 REQUESTING PHYSICIAN: Dr. Bonilla. REASON FOR CONSULTATION: Possible cholangitis. HISTORY OF PRESENT ILLNESS: Gaby Villa is a very pleasant 44-year-old woman, who speaks Lao only. She is seen today with the assistance of the telemedicine interpreting service. She has a history of appendectomy over a year ago. In September, she was hospitalized here with cholecystitis and underwent cholecystectomy with Dr. Campuzano. Pathology demonstrated cholelithiasis and chronic cholecystitis. Notably at that time, transaminases were elevated, though bilirubin was normal. Following surgery, she had resolution of symptoms and normalization of LFTs. She says ever since cholecystectomy, she has had a tendency toward postprandial diarrhea, which has been nonbloody. However, she had no other chronic GI symptoms. Yesterday, she had a fairly acute onset of epigastric abdominal pain, nausea, and nonbloody emesis. This quickly progressed to fevers and then full body aches and chills. Fever got up to 102 prior to presentation. Upon presentation yesterday, she was found to have repeat elevation in LFTs with alkaline phosphatase 172, AST 106, and ALT 170. Her GGT is elevated to 400. Lactic acid was elevated to 3.7 and she has a leukocytosis of 20.6. She had a fever of 101.6 and was also tachycardic to 110. She has been a bit hypotensive this morning, 91/56. She is receiving IV fluid resuscitation and was started on Zosyn. Blood cultures were drawn. Viral hepatitis serologies are negative. Aside from some relative hypotension, she is stable this morning. Continues to have full body aches and chills. Abdominal ultrasound and CT scan were performed and these demonstrate absent gallbladder and fatty liver with common bile duct actually normal in diameter measuring 5 mm. REVIEW OF SYSTEMS: Full review of systems including constitutional, head, eyes, ears, nose, throat, GI, , cardiovascular, respiratory, musculoskeletal, neurologic systems is negative except as noted in the HPI. PAST MEDICAL HISTORY: 1. Appendectomy. 2. Cholelithiasis. 3. Status post cholecystectomy on 09/29/2018. ALLERGIES: NO KNOWN DRUG ALLERGIES. MEDICATIONS: Outpatient medications; 1. Bentyl. 2. Ultram. 3. Zofran. Inpatient medications; 1. Tylenol p.r.n. 2. Lovenox 40 mg subcutaneous daily. 3. Morphine p.r.n. 4. Zosyn 4.5 g IV q.8 hours. 5. She received 1 g dose of vancomycin upon presentation as well. SOCIAL HISTORY: No alcohol or drug abuse. FAMILY HISTORY: Noncontributory. PHYSICAL EXAMINATION: VITAL SIGNS: Initial temperature was 101.6, now down to 98.8; initial heart rate was 110, now down to 76; blood pressure is currently 91/56; 98% oxygen saturation on room air. GENERAL: A 44-year-old woman, lying in bed comfortably, in no distress. SKIN: Warm. No jaundice. No rashes were palpable. EYES: No scleral icterus. Extraocular movements intact. ENT: Mucous membranes are moist. No oral lesions. LYMPH: No submandibular or supraclavicular lymphadenopathy. THYROID: Nontender to palpation. HEART: Regular rate and rhythm. LUNGS: Clear to auscultation bilaterally. ABDOMEN: Nondistended. Bowel sounds are present. The abdomen is soft. She is tender to palpation in the epigastrium. No guarding or rebound tenderness. EXTREMITIES: No peripheral edema. VESSELS: Radial pulses 2+ bilaterally. NEURO: Cranial nerves 2 through 12 intact bilaterally. No focal deficits. LABORATORY STUDIES: WBC 20.6, hemoglobin 15.4, platelets 290. Sodium 134, potassium 3.8, BUN 8, creatinine 0.8, glucose 179. Lactic acid initially 3.7, now down to 2.8. GGT is 400. Total bilirubin 0.7, alkaline phosphatase 172, AST 106, ALT 170, albumin 4.7, lipase normal at 24. Urinalysis is positive for glucose, just 4-6 wbc's. Viral hepatitis serologies are negative. Blood cultures show no growth at this point. Flu swab negative. IMAGING STUDIES: Chest x-ray showed no acute processes. Abdominal ultrasound showed fatty liver, absent gallbladder, bile duct measuring [address] scan demonstrates diverticulosis and fatty liver, absent gallbladder. No acute findings. ASSESSMENT AND PLAN: 1. Sepsis, unknown source. 2. Elevated liver function tests, acute, recurrent. 3. History of cholelithiasis, status post cholecystectomy in September 2018. I note the patient's imaging does not demonstrate biliary dilation; however, with this recurrent acute elevation in LFTs in the context of recent cholecystectomy with documented cholelithiasis, and no other source apparent, I am certainly worried for possible development of cholangitis. She is on IV Zosyn. I think it would be most prudent to take her for ERCP today for biliary sphincterotomy and decompression if necessary. I discussed this with the patient in detail, including the potential risks of ERCP, which include pancreatitis. The patient is in agreement. In the meantime, continue the antibiotics and IV fluid resuscitation. I note the negative viral hepatitis serologies. MELVIN is pending. We will also order other autoimmune markers including smooth muscle antibody and mitochondrial antibody. Thank you for the consultation. Please call anytime with questions or concerns. Job ID: [id number]
[2019-03-04] MEDS ORDERED: Indomethacin 50 MG SUPP ONE (12:50)
[2019-03-04] MEDS ORDERED: Iothalamate Meglumine 60% 50 ML VIAL FS ONE (12:50)
[2019-03-04] MEDS ORDERED: Fentanyl 100 MCG/2 ML VIAL ONE (12:52)
[2019-03-04] MEDS ORDERED: Ondansetron HCl/PF 4 MG/2 ML Vial IVP PRN (14:30)
[2019-03-04] MEDS ORDERED: Morphine Sulfate 2 MG/ML SYRINGE SLOW IVP PRN (14:30)
[2019-03-04] MEDS ORDERED: PACU-Morphine 4MG/ML VIAL SLOW IVP PRN (14:30)
[2019-03-04] MEDS ORDERED: Ketorolac Tromethamine 30 MG/ML VIAL IVP PRN (14:30)
[2019-03-04] MEDS ORDERED: Promethazine HCl 25 MG/ML VIAL SLOW IVP PRN (14:30)
[2019-03-04] MEDS ORDERED: HYDROmorphone 2 MG/ML VIAL SLOW IVP PRN (14:30)
[2019-03-04] MEDS ORDERED: Promethazine HCl 25 MG/ML VIAL IM PRN (14:30)
[2019-03-04] MEDS ORDERED: Meperidine HCl/PF 25 MG/ML VIAL SLOW IVP PRN (14:30)
--- NOTE | 2019-03-04 15:00 | PDOC.EVN ---
Event Note - Event Note Event Note: Seen and examined. Severe throat pain with swallowing. Has obvious stridor. Will order CT neck w and w/out contrast. GI on case for possible ascending cholangitis. Mildly elevated LFT's, normal bilirubin, US liver shows fatty liver without obvious stones.
[2019-03-04] MEDS: Chlorhexidine Gluconate 15 ML UDCUP SSP SCH ×2 (15:22→21:03)
--- NOTE | 2019-03-04 16:27 | CT ---
EXAM: CT neck with contrast HISTORY: Sore throat with possible peritonsillar abscess COMPARISON: None TECHNIQUE: Multiple contiguous axial images were obtained and a CT of the neck with contrast. Sagitta l and coronal reformats were performed. FINDINGS: There is hypertrophy of the palatine tonsils. Foci of air are seen beneath both pathology tonsils wit hout focal drainable fluid collection. Bilateral reactive enlarged cervical lymph nodes are seen. The salivary glands are symmetric thousand focal abnormality. The thyroid is unremarkable. No osseous abnormality is seen in the cervical spine. The visualized intracranial structures are unremarkable. Atelectasis is seen in the posterior aspect of the lungs. IMPRESSION: Tonsillar hypertrophy without peritonsillar abscess
[2019-03-04] MEDS: Cepastat Lozenges 1 LOZ PO PRN (16:34)
--- NOTE | 2019-03-04 18:28 | OP ---
DATE OF PROCEDURE: 03/04/2019 DEMAND INSPECTOR SURGEON: None. PROCEDURE PERFORMED: Attempted endoscopic retrograde cholangiopancreatography, with failure to cannulate the common bile duct. INDICATIONS: A 44-year-old woman, who presented with sepsis, elevation in LFTs, upper abdominal pain, in the context of recent cholecystectomy few months ago, overall concerning for possible cholangitis. MEDICATIONS: 1. See Anesthesia record. 2. Indomethacin 100 mg per rectum, as periprocedural prophylaxis against post endoscopic retrograde cholangiopancreatography pancreatitis. FINDINGS: After discussion of the risks, benefits, and alternatives of the procedure, informed consent was obtained and witnessed. Pre-endoscopic cardiopulmonary examination was satisfactory. Time-out was performed before sedation was achieved. Sedation was achieved with Anesthesia assistance in the endoscopy unit. The patient was placed in a semiprone position on the fluoroscopy table. A Pentax adult side-viewing duodenoscope was advanced through the mouth and beyond the esophagus and stomach and into the second portion of the duodenum under indirect visualization. There were no mucosal abnormalities demonstrated in the esophagus or stomach. The ampulla was brought into view with the endoscope in the short position. The ampulla appears normal. There is free flow of bile from the ampullary orifice. Using a triple lumen dome-tipped sphincterotome and a 0.035 guidewire, I attempted to selectively cannulate the common bile duct. Almost an hour was spent in attempting biliary cannulation. I was able to pass the wire up into the pancreatic duct as well as several pancreatic side branches, but unfortunately, I was unable to cannulate the common bile duct despite repeated attempts. I tried the double wire method and this failed as well. Eventually, it was decided to abort the procedure. The duodenoscope was completely withdrawn suctioning out excess air and fluid. Postprocedure fluoroscopic images demonstrated no retroperitoneal or subdiaphragmatic free air. The patient tolerated the procedure well. There were no immediate postprocedure complications. IMPRESSION: 1. Normal-appearing ampulla, with free flow of clear bile. 2. Inability to cannulate the common bile duct, failed endoscopic retrograde cholangiopancreatography. RECOMMENDATIONS: 1. Clear liquid diet today. 2. Continue antibiotics, IV fluids, sepsis treatment. 3. Follow up labs tomorrow. 4. If the patient clinically decompensates and LFTs are increasing, then we would need to re-attempt ERCP, versus arrange transfer to a center with advanced endoscopist for re-attempt. Job ID: [id number]
[2019-03-05 01:12] LABS: MONO NEGATIVE CONTROL ZONE White (Negative) (White); MONO POSITIVE CONTROL Pink Line (Positive) (PINK/RED); Mononucleosis NEGATIVE (NEGATIVE)
[2019-03-05] MEDS: Piperacillin/Tazobactam 4.5 GM in Sodium Chloride 0.9% 100 ML IVPB SCH ×3 (02:14→16:25)
[2019-03-05] MEDS: Sodium Chloride 0.9% 1,000 ML IV SCH ×2 (04:47→16:24)
[2019-03-05 06:26] LABS: #Lymphocytes 2.9 thou/uL (1.20-3.40); #Neutrophils 9.9 thou/uL (1.40-6.50); %Eosinophils 0.2 % (0.0-10.0); %Lymphocytes 20.7 % (21.0-51.0); %Monocytes 7.2 % (0.0-10.0); %Neutrophils 71.8 % (42.0-75.0); Hemoglobin 12.1 g/dL (12.0-16.0); Mean Corpuscular HGB CONC 34.5 g/dL (32.0-36.0); Mean Corpuscular Volume 92.7 fL (78.0-98.0); Mean Platelet Volume 8.4 fL (7.4-10.4); Platelet Count 180 thou/uL (130-400); RBC Distribution Width 11.9 % (11.5-14.5); Red Blood Cell (RBC) Count 3.78 mill/uL (4.20-5.40); White Blood Cell (WBC) Count 13.8 thou/uL (4.8-10.8)
[2019-03-05 06:47] LABS: Anion Gap 12 mmol/L (10-20); BUN (Urea Nitrogen) 7 mg/dL (7.0-18.7); Calc. Creatinine Clearance 135 mL/min (70-130); Calcium 8.4 mg/dL (7.8-10.44); Carbon Dioxide 16 mmol/L (22-29); Chloride 112 mmol/L (98-107); Estimated GFR-MDRD Greater than 90; Glucose 134 mg/dL (70-105); Lipase 616 U/L (8-78); Potassium 3.9 mmol/L (3.5-5.1); Sodium 136 mmol/L (136-145)
[2019-03-05] MEDS ORDERED: Sodium Chloride 0.9% 1,000 ML IV SCH (08:00)
[2019-03-05] MEDS: Enoxaparin Sodium 40 MG/0.4 ML SYRINGE SC SCH (09:25)
[2019-03-05] MEDS: Chlorhexidine Gluconate 15 ML UDCUP SSP SCH ×3 (09:26→20:23)
[2019-03-05] MEDS: Cepastat Lozenges 1 LOZ PO PRN ×2 (09:45→18:15)
[2019-03-05 09:57] LABS: ALT (SGPT) 154 U/L (8-55); AST (SGOT) 74 U/L (5-34); Albumin 3.3 g/dL (3.5-5.0); Alkaline Phosphatase 163 U/L (40-150); Bilirubin, Direct 0.2 mg/dL (0.1-0.3); Bilirubin, Total 0.3 mg/dL (0.2-1.2); Protein, Total 6.2 g/dL (6.0-8.3)
[2019-03-05] MEDS ORDERED: diphenhydrAMINE 25 MG CAP PO PRN (12:34)
--- NOTE | 2019-03-05 15:04 | PDOC.HOSPP ---
- Subjective Subjective: Seen and examined. Feeling better. Less sore throat. No abdominal pain. No nausea, vomiting. Denies drinking any alcohol. - Objective Vital Signs & Weight: Vital Signs (12 hours) Temp Pulse Resp BP BP Pulse Ox 03/05/19 11:12 98.0 F 64 19 125/69 99 03/05/19 09:25 98 03/05/19 07:12 98.6 F 66 17 109/56 L 98 03/05/19 04:00 97.9 F 63 16 104/58 L 98 Weight Weight 162 lb I&O: 03/04/19 03/05/19 03/06/19 06:59 06:59 06:59 Intake Total 319 4197 Output Total 1100 Balance 319 3097 Result Diagrams: 03/05/19 06:09 03/05/19 06:09 Radiology Reviewed by me: Yes (CT neck) Hospitalist ROS - Review of Systems All other systems reviewed; all pertinent +/- noted in HPI/Subj - Medication Medications: Active Medications Generic Name Dose Route Start Last Admin Trade Name Freq PRN Reason Stop Dose Admin Acetaminophen 650 mg 03/04/19 02:16 03/04/19 15:50 Tylenol PO 650 mg Q4H PRN Administration Fever > 101 Chlorhexidine Gluconate 30 ml 03/04/19 15:00 03/05/19 14:55 Chlorhexidine Gluconate SSP 30 ml TID NATTY Administration Enoxaparin Sodium 40 mg 03/04/19 09:00 03/05/19 09:25 Lovenox SC 40 mg 0900 NATTY Administration Piperacillin Sod/Tazobactam 100 mls @ 200 mls/hr 03/04/19 09:00 03/05/19 09: 27 Sod 4.5 gm/ Sodium Chloride IVPB 100 mls Q8H NATTY Administration Sodium Chloride 1,000 mls @ 75 mls/hr 03/05/19 08:00 03/05/19 09:44 Normal Saline 0.9% IV Not Given .[id number] NATTY Morphine Sulfate 2 mg 03/04/19 01:06 03/04/19 02:32 Morphine SLOW IVP 2 mg Q2H PRN Administration Severe Pain (7-10) Sodium Chloride 10 ml 03/04/19 09:00 03/05/19 09:27 Flush - Normal Saline IVF Not Given Q12HR [facility] Throat Lozenges 1 clare 03/04/19 15:02 03/05/19 09:45 Cepastat Lozenges PO 1 clare Q2H PRN Administration Sore Throat - Exam General Appearance: NAD Eye: anicteric sclera ENT: moist mucosa ENT - other findings: Errythema of the throat without exudates Neck: supple, symmetric, no lymphadenopathy Heart: RRR, no murmur, no gallops Respiratory: CTAB, no wheezes, no rales, no ronchi, normal chest expansion Gastrointestinal: soft, non-tender, non-distended, no palpable masses, no bruit , no guarding, no rigidity Extremities: no edema Skin: no lesions, no rashes Neurological: CN's grossly intact, no weakness, no focal deficits Musculoskeletal: no muscle wasting Psychiatric: normal affect, A&O x 3 Hosp A/P (1) Acute bacterial tonsillitis Code(s): J03.80 - ACUTE TONSILLITIS DUE TO OTHER SPECIFIED ORGANISMS; B96.89 - OTH BACTERIAL AGENTS THE CAUSE OF DISEASES CLASSD ELSWHR Status: Acute (2) Sore throat Code(s): J02.9 - ACUTE PHARYNGITIS, UNSPECIFIED Status: Acute (3) Fatty liver Code(s): K76.0 - FATTY (CHANGE OF) LIVER, NOT ELSEWHERE CLASSIFIED Status: Chronic (4) Elevated LFTs Code(s): R94.5 - ABNORMAL RESULTS OF LIVER FUNCTION STUDIES Status: Chronic (5) Nausea and vomiting Code(s): R11.2 - NAUSEA WITH VOMITING, UNSPECIFIED Status: Resolved (6) Abdominal pain Code(s): R10.9 - UNSPECIFIED ABDOMINAL PAIN Status: Resolved - Plan Plan: Med/ Surg GI consultation, recommendations appreciated S/p EGD, report noted - clear bile draining from ampulla Bili suggestive of no obstructive pattern Elevated LFT, GGT. Patient denies any etoh use when asked multiple times Clinically no signs of pancreatitis, ascending cholangitis Concern for FUNES, will need outpatient follow up Counselled on diet, exercise, alcohol abstinence to avoid worsening of fatty liver Responding to IV ABX Consider de escalation of ABX in the next 24-48 hours if continues to improve GI and DVT PPX
--- NOTE | 2019-03-05 15:54 | PRG ---
DATE OF SERVICE: 03/05/2019 SUBJECTIVE: Ms. Villa has been afebrile since yesterday afternoon. She has had improvement in her myalgias. She does complain of sore throat and mild cough. She also has been nauseated today, tolerating a clear liquid diet without vomiting, but not really hungry. Abdominal discomfort has improved. I note a throat swab is positive for group A Streptococcus and blood cultures are negative. LFTs are slightly down from yesterday. OBJECTIVE: VITAL SIGNS: Temperature 98.0, pulse 60, blood pressure 121/69, 99% oxygen saturation on room air. GENERAL: A 44-year-old woman sitting up in bed comfortably, in no distress. SKIN: No jaundice. HEART: Regular rate and rhythm. LUNGS: Clear to auscultation bilaterally. ABDOMEN: Bowel sounds are active in all four quadrants. Soft and nontender to palpation throughout. EXTREMITIES: No peripheral edema. LABORATORY STUDIES: WBC is down from 20.6 to 13.8, hemoglobin 12.1, platelets 180. Sodium 136, potassium 3.9, BUN 7, creatinine 0.63, glucose 134. LFTs are slightly down with total bilirubin 0.3, alkaline phosphatase 163, AST 74, ALT 154, lipase did go up following the ERCP, at 616 this morning. Throat swab is positive for group A Streptococcus. Urine culture shows greater than 100,000 mixed skin tiffanie. Flu swab is negative. Blood culture showed no growth at [address] performed yesterday evening demonstrates hypertrophy of the palatine tonsils. There are foci of air seen beneath both palatine tonsils without focal drainable fluid collection. There are bilateral reactive enlarged cervical lymph nodes, consistent with tonsillar hypertrophy without peritonsillar abscess. ASSESSMENT/PLAN: 1. Elevated liver function tests. On initial presentation, we had no other potential source for fever and there was concern for cholangitis. ERCP attempt yesterday failed to cannulate the common bile duct; however, given some decline in LFTs since yesterday as well as this new diagnosis of Streptococcal pharyngitis, I do feel this is the more likely explanation for her presentation with fevers. Elevated LFTs are likely reactive to her streptococcal infection, possibly in part due to fatty liver as well. I have low concern for any cholangitis or common bile duct pathology at this time. 2. Post endoscopic retrograde cholangiopancreatography pancreatitis. The patient does have some elevation in lipase today following ERCP yesterday. Clinically, her pancreatitis is mild. She is tolerating clear liquids. Continue with supportive care overnight. Advance diet when tolerated, hopefully tomorrow. Follow LFTs and lipase tomorrow. Job ID: [id number]
[2019-03-06] MEDS: Piperacillin/Tazobactam 4.5 GM in Sodium Chloride 0.9% 100 ML IVPB SCH ×3 (00:21→16:52)
[2019-03-06 05:07] LABS: #Lymphocytes 3.6 thou/uL (1.20-3.40); #Monocytes 0.6 thou/uL (0.11-0.59); #Neutrophils 5.1 thou/uL (1.40-6.50); %Basophils 0.3 % (0.0-1.0); %Eosinophils 0.5 % (0.0-10.0); %Lymphocytes 38.3 % (21.0-51.0); %Monocytes 6.6 % (0.0-10.0); %Neutrophils 54.3 % (42.0-75.0); Mean Corpuscular HGB CONC 34.4 g/dL (32.0-36.0); Mean Corpuscular Hemoglobin 31.6 pg (27.0-31.0); Mean Corpuscular Volume 91.7 fL (78.0-98.0); Mean Platelet Volume 8.1 fL (7.4-10.4); Platelet Count 229 thou/uL (130-400); Red Blood Cell (RBC) Count 3.82 mill/uL (4.20-5.40); White Blood Cell (WBC) Count 9.4 thou/uL (4.8-10.8)
[2019-03-06 05:31] LABS: ALT (SGPT) 150 U/L (8-55); AST (SGOT) 81 U/L (5-34); Albumin 3.5 g/dL (3.5-5.0); Alkaline Phosphatase 130 U/L (40-150); Anion Gap 11 mmol/L (10-20); BUN (Urea Nitrogen) 7 mg/dL (7.0-18.7); Bilirubin, Total 0.4 mg/dL (0.2-1.2); Calc. Creatinine Clearance 125 mL/min (70-130); Calcium 8.3 mg/dL (7.8-10.44); Carbon Dioxide 19 mmol/L (22-29); Chloride 112 mmol/L (98-107); Estimated GFR-MDRD Greater than 90; Glucose 109 mg/dL (70-105); Lipase 989 U/L (8-78); Potassium 3.4 mmol/L (3.5-5.1); Protein, Total 6.5 g/dL (6.0-8.3); Sodium 139 mmol/L (136-145)
--- NOTE | 2019-03-06 07:53 | HP ---
PRIMARY CARE DOCTOR: The patient has no PCP. CODE STATUS: Full code. TIME OF EVALUATION: 03:10 a.m. CHIEF COMPLAINT: Abdominal pain. HISTORY OF PRESENT ILLNESS: This is a 44-year-old female patient with past medical history of no significant medical problems. Surgical history of cholecystectomy, appendectomy, came to the hospital after having severe, gradually worsening abdominal pain associated with fever with no clear triggers, no alleviating factors, also associated with nausea and vomiting. No diarrhea. She has fever, tried some Tylenol, did not work and for that reason, came to the hospital. She was also found to have a sore throat with plaques bilaterally in her tonsils, high LFTs, fever, with hepatitis panel negative. Concern remains for mono that will be ruled out. Meanwhile, she will receive antibiotics once workup is back then we can step up/down on antibiotic therapy. REVIEW OF SYSTEMS: All other systems were reviewed and negative except for the findings mentioned above. PAST MEDICAL HISTORY: No past medical history. PAST SURGICAL HISTORY: Appendectomy and cholecystectomy. PSYCHIATRIC HISTORY: No previous psych history. SOCIAL HISTORY: The patient lives at home with family. No alcohol. No drugs. No smoking history. KNOWN ALLERGIES: No known drug allergies. REPORTED MEDICATIONS: Bentyl, Ultran, and Zofran. PHYSICAL EXAMINATION: VITAL SIGNS: On presentation, blood pressure 133/94 with heart rate 123, respiratory rate was 24, and temperature 102.4. Pain was 10/10. Oxygen saturation was 98% on room air. GENERAL APPEARANCE: The patient is alert and oriented. She looks ill. RESPIRATORY: Bilateral air entry. No rales. No wheezes. Symmetric expansion. CARDIOVASCULAR: Normal rate. Regular rhythm. No murmurs. No gallops. No edema. HEENT: Eyes, normal conjunctivae. Moist oral mucosa. The patient has bilateral plaques in her tonsils with increase in tonsil size associated with neck lymphadenopathies. No deviation of the uvula. CARDIOVASCULAR: Normal rate. Regular rhythm. No murmurs. No gallops. No edema. ABDOMEN: Tender, mostly in the right upper quadrant. MUSCULOSKELETAL: Baseline range of motion and strength. SKIN: Warm and intact. No pallor. No rash. No redness. During my examination, the patient is febrile. The capillary refill seems to be intact. NEURO: No evidence of any new focal weakness. Cranial nerve seems to be intact. PSYCH: The patient is in good mood. No anxiety. Optimal judgment. DIAGNOSTIC STUDIES: Abdomen and pelvis CT was done. The patient has no evidence of acute intraabdominal pelvic abnormalities, diverticulosis, or fatty liver disease. Chest x-ray was done. The patient has no evidence of acute cardiopulmonary disease. Abdominal ultrasound was done, the patient has a fatty liver. LABORATORY DATA: Lab was done. The patient has a white count 20.6, hemoglobin 15.4, MCV 90, platelet count 290, neutrophils 77, bands 14, and lymphocytes of 7. Chemistry: Sodium 134, potassium 3.8, chloride 103, carbon dioxide 20, anion gap 15, BUN 8, creatinine 0.8, GFR 79, glucose 179, lactic acid 2.8 with calcium 9.6, total bilirubin 0.7, GGT 400, AST 106, ALT 170, alkaline phosphatase 172. Serum total protein 83, albumin 4.7, and globulin 3.6. Albumin globulin ratio is 1.3. Lipase 24. Urine was done and showed a white counts of 4 to 6 with some glucosuria and some urine protein. Hepatitis, acute hepatitis panel was negative. ASSESSMENT AND PLAN: The patient will be placed in hospital with following medical problems: 1. Sepsis. The patient has bandemia. The patient has tachycardia, fever, possible source is sore throat infection; however, there is also high LFTs. In case they are separate entities, might be also concern for ascending cholangitis. The patient has normal CBD. The patient has normal gallbladder. We will follow cultures. We will adjust treatment as per sensitivity. Further plan depending on the patient's progress. If not improving, liver function tests are worsening might need assistance from GI. 2. Acute pharyngitis. No clear etiology at this point. We will do streps and also will do monos, if there is the liver and throat involving at the same time, and thus remains in the differential. We will follow workup and treat accordingly. 3. Hyponatremia, sodium 134, this is mild, no need for any acute intervention. Monitor and treat accordingly. 4. Lactic acidosis of 2.8 on presentation. This could be secondary to sepsis. We will treat underlying condition. 5. Hyperglycemia of 179. No history of diabetes, this could be due to acute physical distress. We will monitor. No need for any acute intervention at this point. 6. Deep vein thrombosis prophylaxis. 7. Obesity. The patient is advised to lose weight. Job ID: [id number]
[2019-03-06] MEDS: Enoxaparin Sodium 40 MG/0.4 ML SYRINGE SC SCH (08:14)
[2019-03-06] MEDS: Sodium Chloride 0.9% 1,000 ML IV SCH (08:14)
[2019-03-06] MEDS: Chlorhexidine Gluconate 15 ML UDCUP SSP SCH ×3 (08:14→21:03)
--- NOTE | 2019-03-06 11:44 | PRG ---
DATE OF SERVICE: 03/06/2019 SUBJECTIVE: Ms. Villa has remained afebrile since yesterday. She says her sore throat is feeling better. She is not having any nausea, but she does complain of upper abdominal pain in the right upper quadrant and left upper quadrant, particularly when she is moving around a lot. She is tolerating a clear liquid diet and says that intake of water and juice do not exacerbate her discomfort at all. She is now also complaining of loose stools. OBJECTIVE: VITAL SIGNS: Temperature 97.5, pulse 54, blood pressure 148/77, 98% oxygen saturation on room air. GENERAL: In no acute distress. HEART: Regular rate and rhythm. LUNGS: Clear to auscultation bilaterally. ABDOMEN: Bowel sounds are active throughout. The abdomen is soft. There is some tenderness to palpation in the upper abdomen. No guarding or rebound tenderness. EXTREMITIES: No peripheral edema. LABORATORY DATA: WBC is normalized down to 9.4, hemoglobin 12.0, platelets 229. Sodium 139, potassium 3.4, BUN 7, creatinine 0.68. Total bilirubin 0.4, alkaline phosphatase 130, AST 81, ALT 150, albumin 3.5. Lipase is 989. ASSESSMENT AND PLAN: 1. Streptococcal pharyngitis. The patient is on antibiotic therapy for this. Her sore throat is better. Fever has not recurred. 2. Elevated liver function tests. Viral hepatitis serologies are negative. Bile duct normal in diameter. Good bile flow seen on ERCP with failed cannulation 2 days ago. Elevated LFTs are likely reactive secondary to her streptococcal infection, possibly in part due to fatty liver as well. This is stable. I have low concern for cholangitis or common bile duct pathology at this time. 3. Post ERCP pancreatitis. She does have some lipase elevation and some ongoing upper abdominal discomfort. On the other hand, her leukocytosis has resolved. Her pancreatitis is clinically mild. I want her to back off the liquids a little bit and stick to just water intake today. If drinking water starts to aggravate her abdominal discomfort at all, I have asked her to go n.p.o. 4. Diarrhea. The patient complains of diarrhea starting last night. She has been on antibiotics. We will send stool studies including Clostridium difficile. Job ID: [id number]
--- NOTE | 2019-03-06 12:15 | PDOC.HOSPP ---
- Subjective Subjective: Seen and examined. Throat is feeling better. No longer having fever, WBC normalized. Now with abdominal pain and diarrhea. - Objective Vital Signs & Weight: Vital Signs (12 hours) Temp Pulse Resp BP Pulse Ox 03/06/19 11:16 98 F 57 L 18 134/74 98 03/06/19 07:24 97.5 F L 54 L 18 148/77 H 98 03/06/19 03:20 97.9 F 52 L 18 131/71 99 Weight Weight 162 lb I&O: 03/05/19 03/06/19 03/07/19 06:59 06:59 06:59 Intake Total 4197 3525 Output Total 1100 2650 Balance 3097 875 Result Diagrams: 03/06/19 04:29 03/06/19 04:29 Hospitalist ROS - Review of Systems All other systems reviewed; all pertinent +/- noted in HPI/Subj - Medication Medications: Active Medications Generic Name Dose Route Start Last Admin Trade Name Freq PRN Reason Stop Dose Admin Acetaminophen 650 mg 03/04/19 02:16 03/04/19 15:50 Tylenol PO 650 mg Q4H PRN Administration Fever > 101 Chlorhexidine Gluconate 30 ml 03/04/19 15:00 03/06/19 08:14 Chlorhexidine Gluconate SSP 30 ml TID NATTY Administration Enoxaparin Sodium 40 mg 03/04/19 09:00 03/06/19 08:14 Lovenox SC 40 mg 0900 NATTY Administration Piperacillin Sod/Tazobactam 100 mls @ 200 mls/hr 03/04/19 09:00 03/06/19 08: 19 Sod 4.5 gm/ Sodium Chloride IVPB 100 mls Q8H NATTY Administration Sodium Chloride 1,000 mls @ 75 mls/hr 03/05/19 16:30 03/06/19 08:14 Normal Saline 0.9% IV 1,000 mls .[id number] NATTY Administration Morphine Sulfate 2 mg 03/04/19 01:06 03/04/19 02:32 Morphine SLOW IVP 2 mg Q2H PRN Administration Severe Pain (7-10) Sodium Chloride 10 ml 03/04/19 09:00 03/06/19 08:20 Flush - Normal Saline IVF Not Given Q12HR NATTY Throat Lozenges 1 clare 03/04/19 15:02 03/05/19 18:15 Cepastat Lozenges PO 1 clare Q2H PRN Administration Sore Throat - Exam General Appearance: NAD, awake alert Eye: anicteric sclera ENT: no oropharyngeal lesions, moist mucosa Neck: supple, symmetric, no lymphadenopathy Heart: RRR, no murmur, no gallops, no rubs Respiratory: no wheezes, no rales, no ronchi Gastrointestinal: soft, non-distended, normal bowel sounds, no palpable masses, no bruit, no guarding, tender to palpation Extremities: no edema Skin: no lesions, no rashes Neurological: CN's grossly intact, no weakness Musculoskeletal: no muscle wasting Psychiatric: normal affect, A&O x 3 Hosp A/P (1) Acute bacterial tonsillitis Code(s): J03.80 - ACUTE TONSILLITIS DUE TO OTHER SPECIFIED ORGANISMS; B96.89 - OTH BACTERIAL AGENTS THE CAUSE OF DISEASES CLASSD ELSWHR Status: Acute (2) Sore throat Code(s): J02.9 - ACUTE PHARYNGITIS, UNSPECIFIED Status: Acute (3) Fatty liver Code(s): K76.0 - FATTY (CHANGE OF) LIVER, NOT ELSEWHERE CLASSIFIED Status: Chronic (4) Elevated LFTs Code(s): R94.5 - ABNORMAL RESULTS OF LIVER FUNCTION STUDIES Status: Chronic (5) Nausea and vomiting Code(s): R11.2 - NAUSEA WITH VOMITING, UNSPECIFIED Status: Resolved (6) Abdominal pain Code(s): R10.9 - UNSPECIFIED ABDOMINAL PAIN Status: Resolved (7) Pancreatitis Code(s): K85.90 - ACUTE PANCREATITIS WITHOUT NECROSIS OR INFECTION, UNSP Status: Acute - Plan continue antibiotics Plan: Med/ Surg GI consultation, recommendations appreciated Uptrending lipase, worsening abdominal pain, and now diarrhea R/o C.diff Will consider ID consult pending C.diff Responding to current ABX WBC normalized Afebrile S/p EGD, report noted - bile draining from ampulla Bili suggestive of no obstructive pattern Elevated LFT, GGT. Patient denies any etoh use when asked multiple times Mild pancreatitis at this time Clinically ascending cholangitis Concern for FUNES, will need outpatient follow up Counselled on diet, exercise, alcohol abstinence to avoid worsening of fatty liver Consider de escalation of ABX in the next 24-48 hours if continues to improve GI and DVT PPX
[2019-03-06] MEDS: 1/2 NS w/KCL 20 mEq 1,000 ML IV SCH (13:20)
[2019-03-06] MEDS: Lactinex Tablet PO SCH ×2 (15:29→21:04)
[2019-03-07] MEDS: Piperacillin/Tazobactam 4.5 GM in Sodium Chloride 0.9% 100 ML IVPB SCH ×3 (02:21→16:49)
[2019-03-07] MEDS: Chlorhexidine Gluconate 15 ML UDCUP SSP SCH ×3 (10:13→20:17)
[2019-03-07] MEDS: Enoxaparin Sodium 40 MG/0.4 ML SYRINGE SC SCH (10:14)
[2019-03-07] MEDS: Lactinex Tablet PO SCH ×3 (10:14→20:17)
[2019-03-07] MEDS: 1/2 NS w/KCL 20 mEq 1,000 ML IV SCH (12:17)
--- NOTE | 2019-03-07 14:17 | PDOC.HOSPP ---
- Subjective Subjective: Seen and examined. Still with 7/10 abdominal pain. Tolerating clear liquid diet , still not much appetite. Slept better. - Objective Vital Signs & Weight: Vital Signs (12 hours) Temp Pulse Resp BP BP Pulse Ox 03/07/19 11:35 97.3 F L 54 L 16 117/87 97 03/07/19 07:42 97.6 F 57 L 18 131/62 97 03/07/19 04:00 98.9 F 50 L 16 103/51 L 98 Weight Weight 162 lb I&O: 03/06/19 03/07/19 03/08/19 06:59 06:59 06:59 Intake Total 3525 1511 Output Total 2650 900 Balance 875 611 Result Diagrams: 03/06/19 04:29 03/06/19 04:29 Hospitalist ROS - Review of Systems All other systems reviewed; all pertinent +/- noted in HPI/Subj - Medication Medications: Active Medications Generic Name Dose Route Start Last Admin Trade Name Freq PRN Reason Stop Dose Admin Acetaminophen 650 mg 03/04/19 02:16 03/04/19 15:50 Tylenol PO 650 mg Q4H PRN Administration Fever > 101 Acidophilus 1 tab 03/06/19 15:00 03/07/19 10:14 Floranex PO 1 tab TID NATTY Administration Chlorhexidine Gluconate 30 ml 03/04/19 15:00 03/07/19 10:13 Chlorhexidine Gluconate SSP 30 ml TID NATTY Administration Enoxaparin Sodium 40 mg 03/04/19 09:00 03/07/19 10:14 Lovenox SC 40 mg 0900 NATTY Administration Piperacillin Sod/Tazobactam 100 mls @ 200 mls/hr 03/04/19 09:00 03/07/19 10: 14 Sod 4.5 gm/ Sodium Chloride IVPB 100 mls Q8H NATTY Administration Potassium Chloride/Sodium Chloride 1,000 mls @ 50 mls/hr 03/06/19 12:30 03/07 12:17 1/2 Ns W/Kcl 20 Meq IV 1,000 mls .Q20H NATTY Administration Morphine Sulfate 2 mg 03/04/19 01:06 03/04/19 02:32 Morphine SLOW IVP 2 mg Q2H PRN Administration Severe Pain (7-10) Sodium Chloride 10 ml 03/04/19 09:00 03/07/19 10:15 Flush - Normal Saline IVF Not Given Q12HR NATTY Throat Lozenges 1 clare 03/04/19 15:02 03/05/19 18:15 Cepastat Lozenges PO 1 clare Q2H PRN Administration Sore Throat - Exam General Appearance: NAD, awake alert Eye: anicteric sclera ENT: no oropharyngeal lesions, moist mucosa Neck: supple, symmetric, no lymphadenopathy Heart: no murmur, no gallops, no rubs Heart - other findings: S1 and S2 present Respiratory: no wheezes, no rales, no ronchi Gastrointestinal: soft, non-distended, no bruit, no guarding, tender to palpation Extremities: no edema Skin: no lesions, no rashes Neurological: CN's grossly intact, no weakness, no focal deficits Musculoskeletal: normal tone, normal strength Hosp A/P (1) Acute bacterial tonsillitis Code(s): J03.80 - ACUTE TONSILLITIS DUE TO OTHER SPECIFIED ORGANISMS; B96.89 - OTH BACTERIAL AGENTS THE CAUSE OF DISEASES CLASSD ELSWHR Status: Acute (2) Sore throat Code(s): J02.9 - ACUTE PHARYNGITIS, UNSPECIFIED Status: Acute (3) Fatty liver Code(s): K76.0 - FATTY (CHANGE OF) LIVER, NOT ELSEWHERE CLASSIFIED Status: Chronic (4) Elevated LFTs Code(s): R94.5 - ABNORMAL RESULTS OF LIVER FUNCTION STUDIES Status: Chronic (5) Nausea and vomiting Code(s): R11.2 - NAUSEA WITH VOMITING, UNSPECIFIED Status: Resolved (6) Abdominal pain Code(s): R10.9 - UNSPECIFIED ABDOMINAL PAIN Status: Acute (7) Pancreatitis Code(s): K85.90 - ACUTE PANCREATITIS WITHOUT NECROSIS OR INFECTION, UNSP Status: Acute - Plan Plan: Med/ Surg GI consultation, recommendations appreciated Tolerating clear liquid, advance when able per GI Uptrending lipase, worsening abdominal pain Infectious causes of diarrhea ruled out Responding to current ABX WBC normalized Afebrile S/p EGD, report noted - 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 Patient denies any etoh use when asked multiple times Mild pancreatitis at this time Clinically ascending cholangitis unlikely Concern for FUNES, will need outpatient follow up Counselled on diet, exercise, alcohol abstinence to avoid worsening of fatty liver Consider de escalation of ABX in the next 24-48 hours if continues to improve GI and DVT PPX
--- NOTE | 2019-03-07 17:42 | PRG ---
DATE OF SERVICE: 03/07/2019 SUBJECTIVE: Ms. Villa says she is feeling a lot better today. Her nausea has resolved. She is tolerating clear liquids. Her diarrhea has resolved. She actually reports no bowel movements today. She has remained afebrile. Her abdominal pain has significantly improved. She rates it about a 5/10 periumbilical. No longer waxing and waning with physical activity. She is feeling hungry and hoping to advance her diet if possible. OBJECTIVE: VITAL SIGNS: Temperature 97.7, pulse 60, blood pressure 126/68, 97% oxygen saturation on room air. GENERAL: No acute distress. HEART: Regular rate and rhythm. LUNGS: Clear to auscultation bilaterally. ABDOMEN: Nondistended. Bowel sounds are present. Soft. Mild tenderness to palpation in the periumbilical area. No guarding or rebound tenderness. EXTREMITIES: No peripheral edema. ASSESSMENT AND PLAN: 1. Post endoscopic retrograde cholangiopancreatography pancreatitis, mild, clinically improving. 2. Elevated LFTs, likely reactive secondary to Streptococcal pharyngitis. 3. Streptococcal pharyngitis, now afebrile times greater than 48 hours, on antibiotics. The patient has had significant improvement over the past day. She did develop some mild post endoscopic retrograde cholangiopancreatography pancreatitis, but clinically this appears to be improving. We will go ahead and advance her diet to full liquid diet for dinner this evening. If she does well overnight and is feeling well in the morning, her diet could be further advanced to a regular diet. Hopefully, we will be able to discharge home within the next day or 2. Please call anytime with questions or concerns. Job ID: [id number]
[2019-03-08] MEDS: Piperacillin/Tazobactam 4.5 GM in Sodium Chloride 0.9% 100 ML IVPB SCH ×3 (03:39→16:21)
[2019-03-08] MEDS: Enoxaparin Sodium 40 MG/0.4 ML SYRINGE SC SCH (08:53)
[2019-03-08] MEDS: Lactinex Tablet PO SCH ×3 (08:53→20:52)
[2019-03-08] MEDS: 1/2 NS w/KCL 20 mEq 1,000 ML IV SCH (08:59)
[2019-03-08] MEDS: Potassium Chloride 20 MEQ in Sodium Chloride 0.45% 1,000 ML IV SCH ×2 (08:59→12:49)
[2019-03-08] MEDS: Chlorhexidine Gluconate 15 ML UDCUP SSP SCH ×3 (09:13→20:52)
[2019-03-08 16:18] LABS: ANA Symphony (Qualitative) Negative (Negative); ANA Symphony (Quantitative) 0.4 Ratio (< 0.7 Negative); dsDNA IgG Antibody 1.3 IU/mL (<10 Negative)
--- NOTE | 2019-03-08 17:29 | PDOC.HOSPP ---
- Subjective Subjective: Seen and examined. Still having abdominal pain, though it is less intense than yesterday. Throat pain is improving. Still having phlegm in the sputum. Placing on regular diet. Will place on oral antibiotics and possibly DC in the AM if continues to improve and tolerates diet. - Objective Vital Signs & Weight: Vital Signs (12 hours) Temp Pulse Resp BP BP Pulse Ox 03/08/19 12:01 97 03/08/19 11:00 97.3 F L 59 L 16 113/75 97 03/08/19 08:55 99.5 F 61 18 107/65 98 Weight Weight 162 lb I&O: 03/07/19 03/08/19 03/09/19 06:59 06:59 06:59 Intake Total 1511 2040 Output Total 900 Balance 611 0 Result Diagrams: 03/06/19 04:29 03/06/19 04:29 Hospitalist ROS - Review of Systems All other systems reviewed; all pertinent +/- noted in HPI/Subj - Medication Medications: Active Medications Generic Name Dose Route Start Last Admin Trade Name Freq PRN Reason Stop Dose Admin Acetaminophen 650 mg 03/04/19 02:16 03/04/19 15:50 Tylenol PO 650 mg Q4H PRN Administration Fever > 101 Acidophilus 1 tab 03/06/19 15:00 03/08/19 16:21 Floranex PO 1 tab TID NATTY Administration Chlorhexidine Gluconate 30 ml 03/04/19 15:00 03/08/19 16:21 Chlorhexidine Gluconate SSP 30 ml TID NATTY Administration Enoxaparin Sodium 40 mg 03/04/19 09:00 03/08/19 08:53 Lovenox SC 40 mg 0900 NATTY Administration Piperacillin Sod/Tazobactam 100 mls @ 200 mls/hr 03/04/19 09:00 03/08/19 16: 21 Sod 4.5 gm/ Sodium Chloride IVPB 100 mls Q8H NATTY Administration Potassium Chloride 20 meq/ 1,010 mls @ 50 mls/hr 03/08/19 06:00 03/08/19 12: 49 Sodium Chloride IV 1,010 mls .[id number] NATTY Administration Morphine Sulfate 2 mg 03/04/19 01:06 03/04/19 02:32 Morphine SLOW IVP 2 mg Q2H PRN Administration Severe Pain (7-10) Sodium Chloride 10 ml 03/04/19 09:00 03/08/19 08:53 Flush - Normal Saline IVF 10 ml Q12HR NATTY Administration Throat Lozenges 1 clare 03/04/19 15:02 03/05/19 18:15 Cepastat Lozenges PO 1 clare Q2H PRN Administration Sore Throat - Exam General Appearance: NAD Eye: PERRL, anicteric sclera ENT: no oropharyngeal lesions, moist mucosa Neck: supple, symmetric Heart: RRR, no murmur, no gallops, no rubs Respiratory: CTAB, no wheezes, no rales, no ronchi Gastrointestinal: soft, non-distended, normal bowel sounds, no palpable masses, tender to palpation Extremities: no edema Skin: no lesions, no rashes Neurological: CN's grossly intact, normal sensation to touch Musculoskeletal: no muscle wasting Psychiatric: normal affect, A&O x 3 Hosp A/P (1) Acute bacterial tonsillitis Code(s): J03.80 - ACUTE TONSILLITIS DUE TO OTHER SPECIFIED ORGANISMS; B96.89 - OTH BACTERIAL AGENTS THE CAUSE OF DISEASES CLASSD ELSWHR Status: Acute (2) Sore throat Code(s): J02.9 - ACUTE PHARYNGITIS, UNSPECIFIED Status: Acute (3) Fatty liver Code(s): K76.0 - FATTY (CHANGE OF) LIVER, NOT ELSEWHERE CLASSIFIED Status: Chronic (4) Elevated LFTs Code(s): R94.5 - ABNORMAL RESULTS OF LIVER FUNCTION STUDIES Status: Chronic (5) Nausea and vomiting Code(s): R11.2 - NAUSEA WITH VOMITING, UNSPECIFIED Status: Resolved (6) Abdominal pain Code(s): R10.9 - UNSPECIFIED ABDOMINAL PAIN Status: Acute (7) Pancreatitis Code(s): K85.90 - ACUTE PANCREATITIS WITHOUT NECROSIS OR INFECTION, UNSP Status: Acute - Plan Plan: Med/ Surg GI consultation, recommendations appreciated Advance to regular diet Change to oral Amoxacillin for a total of 10 days for Strep A pharyngitis Still with abdominal pain, though improving Infectious causes of diarrhea ruled out WBC normalized Afebrile S/p EGD, report noted - 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 Patient denies any etoh use when asked multiple times Mild pancreatitis at this time Clinically ascending cholangitis unlikely Concern for FUNES, will need outpatient follow up Counselled on diet, exercise, alcohol abstinence to avoid worsening of fatty liver Consider de escalation of ABX in the next 24-48 hours if continues to improve GI and DVT PPX
[2019-03-08 18:00] LABS: EliA Vaculitis New Method **** NEW METHOD ****; Mitochondrial Ab 1.9 U/mL (<4 Negative)
[2019-03-08] MEDS: AMOXicillin 250 MG CAP PO SCH (20:51)
[2019-03-09] MEDS: Potassium Chloride 20 MEQ in Sodium Chloride 0.45% 1,000 ML IV SCH ×2 (02:55→09:43)
[2019-03-09] MEDS: Enoxaparin Sodium 40 MG/0.4 ML SYRINGE SC SCH (08:47)
[2019-03-09] MEDS: AMOXicillin 250 MG CAP PO SCH ×2 (08:47→20:26)
[2019-03-09] MEDS: Acetaminophen 325 MG TAB PO PRN ×3 (08:47→20:26)
[2019-03-09] MEDS: Lactinex Tablet PO SCH ×3 (08:47→20:26)
[2019-03-09] MEDS: Chlorhexidine Gluconate 15 ML UDCUP SSP SCH ×3 (08:47→20:26)
[2019-03-09] MEDS ORDERED: Ondansetron PF 4 MG/2 ML Vial IVP PRN (08:57)
[2019-03-09] MEDS ORDERED: Ondansetron ODT 4 MG TAB PO PRN (08:57)
[2019-03-09] MEDS ORDERED: POTASSIUM CHLORIDE IV SCH (09:15)
[2019-03-09] MEDS ORDERED: 1/2 NS IV SCH (09:15)
[2019-03-09] MEDS ORDERED: 1/2 NS w/KCL 20 mEq 1,000 ML IV SCH (09:15)
[2019-03-09] MEDS ORDERED: KCL IV SCH (09:15)
--- NOTE | 2019-03-09 13:13 | PDOC.HOSPP ---
- Subjective Subjective: Seen and examined. Worse abdominal pain and nausea this AM after she was started on regular diet. Adding on nausea medications. Transitioned to Amoxicillin as this will be the medication she goes home on. No diarrhea. Pancreatitis not completely resolved. - Objective Vital Signs & Weight: Vital Signs (12 hours) Temp Pulse Resp BP BP Pulse Ox 03/09/19 10:39 97.9 F 68 20 110/66 97 03/09/19 08:00 62 L 03/09/19 07:24 98.1 F 62 20 108/75 98 03/09/19 03:53 98.2 F 65 20 101/68 97 Weight Weight 162 lb I&O: 03/08/19 03/09/19 03/10/19 06:59 06:59 06:59 Intake Total 2880 Balance 2880 Result Diagrams: 03/06/19 04:29 03/06/19 04:29 Hospitalist ROS - Medication Medications: Active Medications Generic Name Dose Route Start Last Admin Trade Name Freq PRN Reason Stop Dose Admin Acetaminophen 650 mg 03/04/19 02:16 03/09/19 08:47 Tylenol PO 650 mg Q4H PRN Administration Fever > 101 Acidophilus 1 tab 03/06/19 15:00 03/09/19 08:47 Floranex PO 1 tab TID NATTY Administration Amoxicillin 500 mg 03/08/19 21:00 03/09/19 08:47 Amoxil PO 500 mg BID NATTY Administration Chlorhexidine Gluconate 30 ml 03/04/19 15:00 03/09/19 08:47 Chlorhexidine Gluconate SSP 30 ml TID NATTY Administration Enoxaparin Sodium 40 mg 03/04/19 09:00 03/09/19 08:47 Lovenox SC 40 mg 0900 NATTY Administration Potassium Chloride 20 meq/ 1,010 mls @ 50 mls/hr 03/09/19 09:15 03/09/19 09: 43 Sodium Chloride IV 1,010 mls .[id number] NATTY Administration Morphine Sulfate 2 mg 03/04/19 01:06 03/04/19 02:32 Morphine SLOW IVP 2 mg Q2H PRN Administration Severe Pain (7-10) Ondansetron HCl 4 mg 03/09/19 08:57 03/09/19 09:46 Zofran IVP 4 mg Q6H PRN Administration Nausea/Vomiting Sodium Chloride 10 ml 03/04/19 09:00 03/09/19 08:48 Flush - Normal Saline IVF 10 ml Q12HR NATTY Administration Throat Lozenges 1 clare 03/04/19 15:02 03/05/19 18:15 Cepastat Lozenges PO 1 clare Q2H PRN Administration Sore Throat Hosp A/P (1) Acute bacterial tonsillitis Code(s): J03.80 - ACUTE TONSILLITIS DUE TO OTHER SPECIFIED ORGANISMS; B96.89 - OTH BACTERIAL AGENTS THE CAUSE OF DISEASES CLASSD ELSWHR Status: Acute (2) Sore throat Code(s): J02.9 - ACUTE PHARYNGITIS, UNSPECIFIED Status: Acute (3) Fatty liver Code(s): K76.0 - FATTY (CHANGE OF) LIVER, NOT ELSEWHERE CLASSIFIED Status: Chronic (4) Elevated LFTs Code(s): R94.5 - ABNORMAL RESULTS OF LIVER FUNCTION STUDIES Status: Chronic (5) Nausea and vomiting Code(s): R11.2 - NAUSEA WITH VOMITING, UNSPECIFIED Status: Resolved (6) Abdominal pain Code(s): R10.9 - UNSPECIFIED ABDOMINAL PAIN Status: Acute (7) Pancreatitis Code(s): K85.90 - ACUTE PANCREATITIS WITHOUT NECROSIS OR INFECTION, UNSP Status: Acute - Plan Plan: Med/ Surg GI consultation, recommendations appreciated Advance to regular diet Change to oral Amoxacillin for a total of 10 days for Strep A pharyngitis Still with abdominal pain, though improving Infectious causes of diarrhea ruled out WBC normalized Afebrile S/p EGD, report noted - 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 Patient denies any etoh use when asked multiple times Mild pancreatitis at this time Clinically ascending cholangitis unlikely Concern for FUNES, will need outpatient follow up Counselled on diet, exercise, alcohol abstinence to avoid worsening of fatty liver Consider de escalation of ABX in the next 24-48 hours if continues to improve GI and DVT PPX
--- NOTE | 2019-03-09 18:45 | PRG ---
DATE OF SERVICE: 03/09/2019 SUBJECTIVE: Ms. Villa was advanced to a regular diet. This morning, she had complained of some worsening abdominal pain and nausea. However, she says this quickly improved and in fact, she ate a full lunch and has been doing very well this afternoon with no nausea or abdominal pain. She is about to start dinner. She has remained hemodynamically stable. OBJECTIVE: VITAL SIGNS: Temperature 97.6, pulse 60, blood pressure 123/82, and 97% oxygen saturation on room air. GENERAL: No acute distress. HEART: Regular rate and rhythm. LUNGS: Clear to auscultation bilaterally. ABDOMEN: Bowel sounds present. Soft and nontender to palpation. EXTREMITIES: No peripheral edema. ASSESSMENT AND PLAN: 1. Post endoscopic retrograde cholangiopancreatography pancreatitis. Clinically, this has been mild with no hemodynamic instability. Favorable lab parameters. She has had some waxing and waning symptoms for the past couple of days, but seems to be doing well this afternoon, tolerating a regular diet. We will see how she does with dinner tonight. I have ordered repeat LFTs and lipase for tomorrow morning. If she is doing well and no significant increase, hopefully she could be discharged home tomorrow. 2. Streptococcal pharyngitis. The plan is to finish out 10 days of antibiotics with amoxicillin as an outpatient after discharge. Job ID: [id number]
[2019-03-10] MEDS: Potassium Chloride 20 MEQ in Sodium Chloride 0.45% 1,000 ML IV SCH (05:58)
[2019-03-10 06:40] LABS: ALT (SGPT) 71 U/L (8-55); AST (SGOT) 36 U/L (5-34); Alkaline Phosphatase 129 U/L (40-150); Anion Gap 10 mmol/L (10-20); BUN (Urea Nitrogen) 10 mg/dL (7.0-18.7); Bilirubin, Total 0.5 mg/dL (0.2-1.2); Calc. Creatinine Clearance 120 mL/min (70-130); Calcium 9.2 mg/dL (7.8-10.44); Carbon Dioxide 24 mmol/L (22-29); Chloride 105 mmol/L (98-107); Estimated GFR-MDRD 90; Globulin 3.5 g/dL (2.4-3.5); Glucose 87 mg/dL (70-105); Lipase 315 U/L (8-78); Potassium 3.8 mmol/L (3.5-5.1); Protein, Total 7.5 g/dL (6.0-8.3); Sodium 135 mmol/L (136-145)
[2019-03-10 07:12] VITALS: BP 110/71; TEMP 97.9
[2019-03-10] MEDS: AMOXicillin 250 MG CAP PO SCH (08:59)
[2019-03-10] MEDS: Lactinex Tablet PO SCH (08:59)
[2019-03-10] MEDS: Chlorhexidine Gluconate 15 ML UDCUP SSP SCH (09:00)
[2019-03-10] MEDS: Enoxaparin Sodium 40 MG/0.4 ML SYRINGE SC SCH (09:03)
--- NOTE | 2019-03-11 03:41 | DIS ---
DATE OF ADMISSION: 03/04/2019 DATE OF DISCHARGE: 03/10/2019 REASON FOR HOSPITALIZATION: Throat pain and abdominal pain. SIGNIFICANT FINDINGS: The patient was found to have strep positive tonsillitis/pharyngitis. The patient with elevated liver function tests, found to have mild pancreatitis. PROCEDURE PERFORMED/TREATMENTS RENDERED: The patient went for EGD on 03/04/2019, please see full operative report for details. The patient was placed on IV antibiotics with good resolution of symptoms. CONDITION ON DISCHARGE: Stable. SPECIFIC INSTRUCTIONS FOR THE PATIENT/FAMILY: 1. The patient is recommended to take all medications as directed. 2. The patient is recommended to follow up with primary care physician in the next 5 to 7 days. 3. The patient is recommended to follow up with Gastroenterology in the next 2 to 4 weeks. 4. The patient is recommended to return to acute care hospital immediately if signs or symptoms return, worsen, or any other new symptoms occur. DISCHARGE MEDICATIONS: 1. Amoxicillin 500 mg one tablet p.o. b.i.d. for the next 6 days, #12 tablets. 2. Lactobacillus one tablet p.o. t.i.d. for 14 days, #42 tablets. 3. Zofran 4 mg one tablet p.o. q.6 hours p.r.n. nausea, vomiting, #30 tabs. HOSPITAL COURSE: Ms. Villa is a very pleasant 44-year-old female, who presented to [facility] on 03/03/2019. The patient with abdominal pain, throat pain and elevated liver function tests, was admitted to medical unit with telemetry for further evaluation. The patient was seen by Gastroenterology, please see full consultation and progress notes for details. Gastroenterology recommending endoscopy, please see full operative report from 03/04/2019 for details. The patient with unsuccessful ERCP and thankfully there was no ascending cholangitis or gross infection from the biliary system. The patient was found to have pancreatitis with mildly elevated lipase and she was placed on a clear liquid diet. The patient's CT scan of the neck did demonstrate acute tonsillitis/pharyngitis and was confirmed to have group A streptococcus growing from her throat. The patient initially placed on broad-spectrum antibiotics, had resolution of white count, remained afebrile, and improved dramatically. The patient was transitioned to oral antibiotics with coverage for group A strep. The patient's lipase downtrended. The patient tolerating regular diet. The patient recommended safe for discharge by Gastroenterology with close followup in the outpatient setting. The patient with fatty infiltration of the liver was recommended to follow up with Gastroenterology and should be monitored for nonalcoholic steatohepatitis over time. The patient recommended safe for discharge and efforts were made to coordinate with case briefer to have her medications delivered to her at bedside with no cost. The patient recommended to complete a full course of oral antibiotics for resolution of strep throat. The patient recommended diet and exercise changes to avoid worsening of fatty liver disease. The patient is recommended to follow up with primary care physician in the next 5 to 7 days. The patient is recommended to follow up with Gastroenterology in the next 2 to 4 weeks. The patient is recommended to return to acute care hospital immediately if signs or symptoms return, worsen, or any other new symptoms occur. Greater than 35 minutes spent coordinating care and discharge process for this patient. Job ID: [id number]
== END 2019-03-10 14:35 | disposition home or self-care (01) | DRG 871 ==
LOC: ERS 19:32 → 2NO 03-04 00:47 → T4-A 03-08 10:47
PROVIDERS: ADMIT Hospitalist; ATTEND Hospitalist
PROC: 0FJD8ZZ Inspection of Pancreatic Duct, Via Natural or Artificial Opening Endoscopic (ICD-10-PCS; principal; 2019-03-04)
DX: A41.9 Sepsis, unspecified organism (principal); K85.90 Acute pancreatitis without necrosis or infection, unspecified; E87.1 Hypo-osmolality and hyponatremia; E87.2 Acidosis; J02.0 Streptococcal pharyngitis; R73.9 Hyperglycemia, unspecified; K75.81 Nonalcoholic steatohepatitis (NASH); E66.9 Obesity, unspecified; Z90.49 Acquired absence of other specified parts of digestive tract; Z68.32 Body mass index [BMI] 32.0-32.9, adult
CPT/HCPCS: 36415; 70491; 71045; 74177; 76000; 76705; 80048; 80053; 80074; 80076; 81003; 81015; 81025; 82977; 83516; 83605; 83630; 83690; 85025; 86038; 86225; 86308; 87040; 87045; 87046; 87086; 87324; 87427; 87430; 87449; 87804; 96361; 96365; 96367; 96375; J1100; J1650; J1885; J2001; J2270; J2405; J2543; J2704; J3010; J3370; J3480; J3490; Q9966

== ENCOUNTER 2021-02-28 19:10 | Emergency (ER) | payer OTHER, SELFPAY ==
[2021-02-28 19:46] LABS: #Eosinphils 0.1 thou/uL (0.0-0.7); #Lymphocytes 2.1 thou/uL (1.20-3.40); #Monocytes 0.7 thou/uL (0.11-0.59); #Neutrophils 5.5 thou/uL (1.40-6.50); %Basophils 0.1 % (0.0-1.0); %Eosinophils 0.8 % (0.0-10.0); %Lymphocytes 25.4 % (21.0-51.0); %Monocytes 8.3 % (0.0-10.0); %Neutrophils 65.4 % (42.0-75.0); Hemoglobin 13.8 g/dL (12.0-16.0); Mean Corpuscular HGB CONC 34.1 g/dL (32.0-36.0); Mean Corpuscular Hemoglobin 30.1 pg (27.0-31.0); Mean Corpuscular Volume 88.4 fL (78.0-98.0); Mean Platelet Volume 7.4 fL (7.4-10.4); Platelet Count 265 thou/uL (130-400); RBC Distribution Width 12.9 % (11.5-14.5); Red Blood Cell (RBC) Count 4.59 mill/uL (4.20-5.40); White Blood Cell (WBC) Count 8.4 thou/uL (4.8-10.8)
[2021-02-28 20:06] LABS: ALT (SGPT) 147 U/L (8-55); AST (SGOT) 179 U/L (5-34); Albumin 3.9 g/dL (3.5-5.0); Alkaline Phosphatase 161 U/L (40-110); Anion Gap 11 mmol/L (10-20); BUN (Urea Nitrogen) 8 mg/dL (7.0-18.7); Bilirubin, Total 1.3 mg/dL (0.2-1.2); Calc. Creatinine Clearance 0 mL/min (70-130); Calcium 8.9 mg/dL (7.8-10.44); Carbon Dioxide 22 mmol/L (22-29); Chloride 108 mmol/L (98-107); Globulin 3.7 g/dL (2.4-3.5); Glucose 130 mg/dL (70-105); Potassium 3.9 mmol/L (3.5-5.1); Protein, Total 7.6 g/dL (6.0-8.3); Sodium 137 mmol/L (136-145)
[2021-02-28 20:08] LABS: Bilirubin Negative (Negative); Blood, Urine Negative (Negative); Clarity Turbid (Clear); Glucose, Urine (Dipstick) Normal (Negative); Ketone, Urine Negative (Negative); Leukocyte Negative Leu/uL (Negative); Nitrite Negative (Negative); Protein, Urine (Dipstick) 10 mg/dL (Neg-Trace); Specific Gravity, Urine 1.014 (1.002-1.036); Urobilinogen 6 mg/dL (Less than 2); pH, Urine 8.5 (5.0-9.0)
[2021-02-28 20:09] LABS: Pregnancy Test - Urine (BHCG) Negative (Negative); Pregu Control Background? CLEAR/WHITE (CLR/WHITE); Pregu Control Bar Appear? YES (CONTROL BAR); Specific Gravity 1.014 (1.002-1.036)
[2021-02-28] MEDS ORDERED: Ondansetron ODT 4 MG TAB ONE (20:45)
[2021-02-28] MEDS ORDERED: Acetaminophen 500 MG TAB ONE (20:45)
== END 2021-02-28 21:14 | disposition home or self-care (01) ==
LOC: ERS 19:10
DX: R11.2 Nausea with vomiting, unspecified (principal); R19.7 Diarrhea, unspecified; R52 Pain, unspecified; R94.5 Abnormal results of liver function studies; Z20.822 Contact with and (suspected) exposure to COVID-19
CPT/HCPCS: 36415; 80053; 81003; 81025; 85025; 99284; Q0162